=== PATIENT | male | born 1930 | race Caucasian/White ===

== ENCOUNTER 2017-06-28 09:43 | Inpatient (IN) ==
[2017-06-28 10:43] LABS: Basophils # 0.1 K/mcL (0.0-0.2); Basophils % 0.4 %; Eosinophils # 0.2 K/mcL (0.0-0.6); Eosinophils % 1.8 %; Hematocrit 33.7 % (37.5-50.1); Hemoglobin 10.1 g/dL (12.9-16.9); Immature Granulocytes % 2.4 % (0-4); Immature Platelets 1.8 % (1.1-6.1); Lymphocytes # 3.1 K/mcL (0.6-4.6); Lymphocytes % 27.4 %; Mean Corpuscular Hemoglobin 27.4 pg (28.0-33.3); Mean Corpuscular Volume 91.3 fL (83.0-100.0); Mean Platelet Volume 9.5 fL (9.4-12.4); Monocytes # 0.6 K/mcL (0.0-1.3); Neutrophils # 7.1 K/mcL (1.6-8.9); Platelet Count 313 K/mcL (140-400); Red Blood Count 3.69 M/mcL (4.19-5.50)
[2017-06-28 10:58] LABS: INR 1.2
[2017-06-28 11:00] LABS: Activated Partial Thrombo Time 32.5 Seconds (26.0-36.0)
[2017-06-28 11:38] LABS: Calcium 8.7 mg/dL (8.6-10.3); Potassium 3.9 mEq/L (3.5-5.1)
--- NOTE | 2017-06-28 13:44 | Emergency Department Note ---
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 Patient's been seen in the outpatient setting and had known gastro-bleed. Recommended coming to the hospital for admission and evaluation secondary to no bed availability. Patient denies any other symptoms or complaints. Onset (ago): day(s) Radiation: non-radiation Pain Scale: 0 Improves with: nothing Worsens with: nothing Associated symptoms: Reports: denies other symptoms - Related Data Allergies Allergy/AdvReac Type Severity Reaction Status Date / Time No Known Allergies Allergy Verified 06/28/17 09:47 All systems ED: reviewed and negative except as stated. Review of Systems: As Per HPI Constitutional: Denies: fever, chills Cardiovascular: Denies: chest pain, palpitations, dyspnea on exertion Respiratory: Denies: cough, dyspnea, wheezes Gastrointestinal: Reports: melena. Denies: nausea, vomiting, diarrhea Genitourinary: Denies: urgency, dysuria Musculoskeletal: Denies: back pain, neck pain Neurological: Denies: headache Hematological/Lymphatic: Denies: easy bleeding Past Medical History - Past Medical History Attestation: Yes The following information was validated with the patient. Source: patient Medical history: Reports: hypertension, other Psychiatric history: Reports: no psych history - Social History Smoking Status: Never smoker Smokeless Tobacco Status: No Alcohol use: Reports: none Drug use: Reports: none Physical Exam - General Limitations: no limitations General appearance: alert, in no apparent distress - Head Head exam: atraumatic, normocephalic, normal inspection - Neck Neck exam: Present: normal inspection, full ROM, trachea midline - Chest Chest inspection: Present: normal inspection, symmetric chest wall rise. Absent : tenderness - Respiratory Respiratory exam: Present: normal lung sounds bilaterally. Absent: respiratory distress, wheezes, stridor - Cardiovascular Cardiovascular exam: Present: regular rate, normal rhythm, normal heart sounds - Abdominal Exam Abdominal exam: Present: soft, Non-Tender, normal bowel sounds. Absent: tenderness, distention, guarding, rebound, rigidity, Trevino's sign, Rovsing's sign, tenderness at McBurney's Point - Extremities Exam Extremities exam: Present: normal inspection, full ROM. Absent: tenderness - Back Exam Back exam: Present: normal inspection, full ROM. Absent: tenderness - Neurological Exam Neurological exam: Present: alert, oriented X3, CN II-XII intact, normal gait - Psychiatric Psychiatric exam: Present: normal affect, normal mood - Skin Skin exam: Present: warm, dry, intact, normal color Course Course Narrative: Patient seen and examined the time of arrival. See history of present illness. 86-year-old male presents emergency room from outpatient gastroenterology office. Recommended to come the emergency room for admission secondary to melena. Patient denies any other symptoms. I evaluated him at the bedside he denies chest pain shortness of breath headache vision changes nausea vomiting or diarrhea. He has had melena stool. While. His hemoglobin is stable today at 10.1. No other comparable. Patient's been hemodynamically stable here. Otherwise laboratory workup was unremarkable. 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 chatterjee. Recommended admission for chronic anemia and the need for a EGD. No other complaints or issues noted by the patient. Patient will be admitted for some dramatic GI bleed with stable hemoglobin. Hospitalist Dr. quiroz was contacted. Reviewed the chart and understands the request for the lamp shade sewer and will admit the patient for further evaluation and management. My physical exam shows a well-appearing male in no apparent distress lungs are clear heart is regular. No signs of pitting edema she has good capillary refill and no signs of poor skin turgor or decreased pallor to the conjunctiva. Patient stable. No repeat Hemoccult testing will be completed as time secondary to the outpatient confirm lab. patient in the emergency room to admission process is completed. Cocaine was applied to this patient's treatment course. Vital Signs Temperature 98.7 F 06/28/17 09:44 Pulse Rate 92 06/28/17 09:44 Respiratory Rate 18 06/28/17 09:44 Blood Pressure 184/77 06/28/17 09:44 O2 Sat by Pulse Oximetry 98 06/28/17 09:44 Temperature 98.7 F 06/28/17 09:44 Pulse Rate 95 06/28/17 10:10 Respiratory Rate 16 06/28/17 10:10 Blood Pressure 160/65 06/28/17 10:10 O2 Sat by Pulse Oximetry 96 06/28/17 10:10 Oxygen Delivery Oxygen Delivery Room Air Medical Decision Making - MDM Narrative Medical decision making narrative: GI bleed, melena stool - Medical Records Medical records reviewed: Yes I reviewed the patient's medical records. - Lab Data Lab results reviewed: Yes I reviewed the patient's lab results. Result diagrams: 06/28/17 10:05 06/28/17 10:05 Lab Results 06/28/17 06/28/17 06/28/17 Range/Units 10:05 10:05 10:05 WBC 11.2 H (4.3-11.1) K/mcL RBC 3.69 L (4.19-5.50) M/mcL Hgb 10.1 L (12.9-16.9) g/dL Hct 33.7 L (37.5-50.1) % MCV 91.3 (83.0-100.0) fL MCH 27.4 L (28.0-33.3) pg MCHC 30.0 L (31.6-35.5) g/dL RDW 16.0 H (11.5-14.5) % Plt Count 313 (140-400) K/mcL MPV 9.5 (9.4-12.4) fL Immature Gran % 2.4 (0-4) % Seg Neutrophils % 63.0 % Lymphocytes % 27.4 % Monocytes % 5.0 % Eosinophils % 1.8 % Basophils % 0.4 % Neutrophils # 7.1 (1.6-8.9) K/mcL Lymphocytes # 3.1 (0.6-4.6) K/mcL Monocytes # 0.6 (0.0-1.3) K/mcL Eosinophils # 0.2 (0.0-0.6) K/mcL Basophils # 0.1 (0.0-0.2) K/mcL Immature Plt Fraction 1.8 (1.1-6.1) % PT 13.0 H (9.4-12.1) Seconds INR 1.2 APTT 32.5 (26.0-36.0) Seconds Sodium 138 (136-145) mEq/L Potassium 3.9 (3.5-5.1) mEq/L Chloride 106 (98-107) mEq/L Carbon Dioxide 22 L (23-29) mEq/L BUN 21 (8-23) mg/dL Creatinine 1.62 H (0.70-1.30) mg/dL Est GFR ( Amer) 49 L (> 60) Est GFR (Non-Af Amer) 41 L (> 60) BUN/Creatinine Ratio 13 (6-26) Glucose 124 H (70-105) mg/dL Calculated Osmolality 290 (280-300) Calcium 8.7 (8.6-10.3) mg/dL Blood Type Antibody Screen 06/28/17 Range/Units 10:05 WBC (4.3-11.1) K/mcL RBC (4.19-5.50) M/mcL Hgb (12.9-16.9) g/dL Hct (37.5-50.1) % MCV (83.0-100.0) fL MCH (28.0-33.3) pg MCHC (31.6-35.5) g/dL RDW (11.5-14.5) % Plt Count (140-400) K/mcL MPV (9.4-12.4) fL Immature Gran % (0-4) % Seg Neutrophils % % Lymphocytes % % Monocytes % % Eosinophils % % Basophils % % Neutrophils # (1.6-8.9) K/mcL Lymphocytes # (0.6-4.6) K/mcL Monocytes # (0.0-1.3) K/mcL Eosinophils # (0.0-0.6) K/mcL Basophils # (0.0-0.2) K/mcL Immature Plt Fraction (1.1-6.1) % PT (9.4-12.1) Seconds INR APTT (26.0-36.0) Seconds Sodium (136-145) mEq/L Potassium (3.5-5.1) mEq/L Chloride (98-107) mEq/L Carbon Dioxide (23-29) mEq/L BUN (8-23) mg/dL Creatinine (0.70-1.30) mg/dL Est GFR ( Amer) (> 60) Est GFR (Non-Af Amer) (> 60) BUN/Creatinine Ratio (6-26) Glucose (70-105) mg/dL Calculated Osmolality (280-300) Calcium (8.6-10.3) mg/dL Blood Type A POSITIVE Antibody Screen NEGATIVE
[2017-06-28] MEDS ORDERED: SODIUM CHLORIDE/NAHCO3/KCL/PEG 4,000 ML SOLN.RECON PO ONE (13:45)
[2017-06-28] MEDS ORDERED: Naloxone 0.4 MG/ML INJ IVP PRN (13:53)
--- NOTE | 2017-06-28 14:11 | Internal Med History&Physical ---
<Elijah Ospina - Last Filed: 06/28/17 14:06> Date of Encounter: 06/28/17 Time of Encounter: 14:06 Assessment and Plan (1) Melanotic stools Current visit: Yes Status: Acute H/O melanotic stools intermittently for the last 2 years Is reporting an increase in frequency as well as having increased frequency of bright red blood with BMs No prior history of colon cancer, no family history of colorectal cancer Reports he has never had a colonoscopy; saw gastroenterology in office today and due to continued bleeding as well as anemia, it is recommended he come to the hospital for further evaluation. I suspect that he may have both an upper and lower GI bleed No active bleeding as of my assessment. He remains hemodynamically stable -Consult to gastroenterology-Talked to Dr. Ventura who requested start GoLYTELY prep and Protonix drip; plan for EGD and colonoscopy in the morning -Type and screen completed -Nothing by mouth except sips with meds -Every 6 hours hemoglobin and hematocrit; Transfuse if bleeding develops or if anemia worsens and patient becomes symptomatic -CBC and BMP in the morning -continuous tele, and Spo2 monitoring (2) Upper GI bleed Current visit: Yes Status: Acute see plan above (3) CHF (congestive heart failure) Current visit: Yes Status: Suspected Bilateral lower extremity 2+ pitting edema. Denies any prior history of congestive heart failure, coronary artery disease or prior LA's. I suspect he may have undiagnosed CHF. -TTE now -20 mg IV Lasix 1 dose now Qualifiers: Congestive heart failure type: unspecified Congestive heart failure chronicity: unspecified Qualified Code(s): I50.9 - Heart failure, unspecified (4) HTN (hypertension) Current visit: Yes Status: Acute H/o HTN. BP is currently 160's systolic. He has had SBP as high as 180's. Continue to monitor and start Metoprolol 5mg IVP Q6hrs PRN. Start Metoprolol 12.5mg PO BID Qualifiers: Hypertension type: essential hypertension Qualified Code(s): I10 - Essential (primary) hypertension (5) DVT prophylaxis Current visit: Yes Status: Acute Mechanical EPCD's Internal Medicine - H&P: HPI Chief complaint: GI bleed Admitted From: Home Plans for Post Hospital Care: Home History of present illness: Mr. Robertson is a 86 year old male with past medical history of hypertension presents to [place] today with GI bleed ongoing for the last 2 years. No prior history of colon cancer, no family history of colon cancer, reports he has never had a colonoscopy. He reports that for the last 2 years he has been having small amounts of dark and bright red blood in his stool. He states that his primary care provider is aware of this and is performed multiple fecal occult blood samples to be negative. He does admit to some external hemorrhoids. However, the patient is concerned as he is been having an increase in the frequency of bloody stools with both bright red blood and melena. He denies any fever, chills, unintentional weight loss, night sweats, palpitations, tachycardia, shortness of breath, abdominal pain, or change in stools. 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 Past Med Surg Social Fam HX - Past Medical History Medical history: hypertension, other Psychiatric history: no psych history - Social History Smoking Status: Never smoker Smokeless Tobacco Status: No Alcohol use: none Drug use: none - Additional Family History Additional family history: Reports no family history and denies any family history of cancer or colon cancer Internal Medicine - H&P: Meds Aspirin Enteric Coated [Aspirin EC] 81 mg PO DAILY 06/28/17 [History] Atenolol [Tenormin] 25 mg PO DAILY 06/28/17 [History] Diltiazem CD (24hr) [Cardizem CD] 120 mg PO QAM 06/28/17 [History] Diltiazem CD (24hr) [Cardizem CD] 120 mg PO QPM 06/28/17 [History] Diltiazem CD (24hr) [Cardizem CD] 300 mg PO QAM 06/28/17 [History] Finasteride [Proscar] 5 mg PO DAILY 06/28/17 [History] Hydrophilic Ointment [Aquabase] 1 appl TP BID 06/28/17 [History] Lisinopril/Hydrochlorothiazide [Zestoretic 20-12.5 mg Tablet] 1 each PO BID [History] Sodium Chloride 5% OPTH Oint [Becca-128] 1 appl BOTH EYES HS 06/28/17 [History] Tamsulosin [Flomax] 0.4 mg PO DAILY 06/28/17 [History] Vit C/E/Zn/Coppr/Lutein/Zeaxan [Preservision Areds 2 Softgel] 1 cap PO BID 06/28 [History] 3 Allergy/AdvReac Type Severity Reaction Status Date / Time No Known Allergies Allergy Verified 06/28/17 09:47 All Systems PM: A 10-system review of systems was performed and is negative for pertinent findings except as documented above in the HPI. - Constitutional Constitutional: as per HPI - Cardiovascular Cardiovascular ROS IM: no chest pain, no diaphoresis, no dyspnea, no lightheadedness, no palpitations, no syncope - Respiratory Respiratory: no cough, no dyspnea, no wheezing, no excessive phlegm production - Gastrointestinal Gastrointestinal: as per HPI - Genitourinary Genitourinary ROS male: no difficulty urinating, no dysuria, no flank pain - Musculoskeletal Musculoskeletal ROS IM: no numbness, no tingling - Integumentary Integumentary IM: no rash, no unusual bruising - Neurological Neurological ROS: no confusion, no convulsions, no focal weakness, no numbness, no tingling, no tremor(s) - Hematologic/Lymphatic Hematologic/Lymphatic: as per HPI - Constitutional Vitals: Temp Pulse Resp BP Pulse Ox 98.7 F 95 16 160/65 96 06/28/17 09:44 06/28/17 10:10 06/28/17 10:10 06/28/17 10:10 06/28/17 10:10 General appearance: Present: cooperative, A&O X 3, no acute distress, answers questions appropriately - Head Head exam: Present: atraumatic, normocephalic - Eye Eye exam: Present: PERRL, conjuntiva pink, sclera anicteric Pupils: Present: PERRL - Neck Neck exam general surgery: Present: supple, trachea midline. Absent: lymphadenopathy - Respiratory Respiratory exam: Present: CTAB. Absent: accessory muscle use, rales, rhonchi, wheezes - Cardiovascular Cardiovascular exam: Present: RRR, +S1, +S2. Absent: diastolic murmur, gallop, rubs, systolic murmur - GI/Abdominal GI/Abdominal exam: Present: normal bowel sounds, soft, no peritoneal signs. Absent: distended, tenderness - Extremities Exam Extremities exam: Present: pedal edema (Bilateral lower extremity 2+ pitting edema), warm, radial pulses palpable and symmetrical. Absent: calf tenderness, cyanotic - Neurological Exam Neurological exam: Present: CN II-XII intact, oriented X3, no focal deficits. Absent: pronater drift, facial droop, speech deficit - Skin Skin exam: Present: dry, intact Internal Med - H&P Results - Labs CBC & Chem 7: 06/28/17 10:05 06/28/17 10:05 Labs: Short CBC 06/28/17 Range/Units 10:05 WBC 11.2 H (4.3-11.1) K/mcL Hgb 10.1 L (12.9-16.9) g/dL Hct 33.7 L (37.5-50.1) % Plt Count 313 (140-400) K/mcL Neutrophils # 7.1 (1.6-8.9) K/mcL BMP 06/28/17 10:05 Sodium 138 Potassium 3.9 Chloride 106 Carbon Dioxide 22 L BUN 21 Creatinine 1.62 H Glucose 124 H Calcium 8.7 <João Heredia T - Last Filed: 06/28/17 16:46> Date of Encounter: 06/28/17 Internal Medicine - H&P: HPI History of present illness: Mr. Robertson is a 86 year old male All Systems PM: A 10-system review of systems was performed and is negative for pertinent findings except as documented above in the HPI. - Constitutional Vitals: Temp Pulse Resp BP Pulse Ox 98.1 F 78 18 149/85 96 06/28/17 15:25 06/28/17 15:25 06/28/17 15:25 06/28/17 15:25 06/28/17 15:25 Internal Med - H&P Results - Labs CBC & Chem 7: 06/28/17 16:07 06/28/17 10:05 - Attending Attestation Seen and examined independently, spouse at the bedside Recently treated for cellulitis , on ASA daily only, also antihypertensives Has a scalp lesion on his Right parieto-occipital area, LLE red> left, both with piting pedal edema, 1+, chest is CTAB, HS S1, S2. No focal neuro deficits Labs and Imaging reviewed Agree with monitoring H/H, bowel prep for EGD/Colonosocpy, GI eval, PPI, Wound care eval for his scalp wound, no evidence of sepsis. ECHO for suspected CHF. IV metoprolol prn for elevated blood pressure. Rest as in DAKOTAH Ospina' documentation
[2017-06-28] MEDS ORDERED: *HR* Metoprolol 5 MG/5 ML VIAL IVP SCH (14:30)
[2017-06-28] MEDS ORDERED: Furosemide 20 MG/2 ML VIAL IVP ONE (14:35)
[2017-06-28] MEDS ORDERED: *HR* Metoprolol 5 MG/5 ML VIAL IVP PRN (14:37)
[2017-06-28 16:14] LABS: Hematocrit 29.4 % (37.5-50.1)
[2017-06-28] MEDS: Pantoprazole 40 MG in 0.9 % Sodium Chloride Mini Bag 100 ML IVC SCH ×2 (17:47→22:26)
[2017-06-28 22:02] LABS: Hematocrit 30.6 % (37.5-50.1); Hemoglobin 9.6 g/dL (12.9-16.9)
[2017-06-29] MEDS: Pantoprazole 40 MG in 0.9 % Sodium Chloride Mini Bag 100 ML IVC SCH ×2 (03:42→08:40)
[2017-06-29 04:59] LABS: Basophils % 0.4 %; Eosinophils # 0.2 K/mcL (0.0-0.6); Eosinophils % 1.8 %; Hematocrit 29.7 % (37.5-50.1); Immature Granulocytes % 2.3 % (0-4); Lymphocytes # 2.2 K/mcL (0.6-4.6); Lymphocytes % 24.4 %; Mean Corpuscular HGB Conc 30.3 g/dL (31.6-35.5); Mean Corpuscular Hemoglobin 27.3 pg (28.0-33.3); Monocytes # 0.6 K/mcL (0.0-1.3); Monocytes % 6.1 %; Neutrophils # 5.9 K/mcL (1.6-8.9); Nucleated Red Blood Cells 0.3 /100 WBC (0); Platelet Count 259 K/mcL (140-400); Red Cell Distribution Width 15.8 % (11.5-14.5)
[2017-06-29 05:11] LABS: Calcium 8.2 mg/dL (8.6-10.3); Potassium 4.3 mEq/L (3.5-5.1)
--- NOTE | 2017-06-29 08:22 | Electrocardiograph Report ---
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
[2017-06-29] MEDS: Lisinopril-HCTZ 20-12.5mg TABLET PO SCH ×2 (08:39→21:30)
[2017-06-29] MEDS: Diltiazem CD (24hr) 120 MG CAPSULE PO SCH (08:39)
[2017-06-29] MEDS: Diltiazem CD (24hr) 300 MG CAPSULE PO SCH (08:39)
[2017-06-29] MEDS: Finasteride 5 MG TABLET PO SCH (08:39)
[2017-06-29 10:00] LABS: Hematocrit 30.9 % (37.5-50.1); Hemoglobin 9.2 g/dL (12.9-16.9)
--- NOTE | 2017-06-29 11:08 | Gastroenterology Consult Note ---
<Tim Jones - Last Filed: 06/29/17 11:06> Date of Encounter: 06/29/17 Time of Encounter: 10:25 - Assessment and plan (1) GI bleed Current Visit: Yes Status: Acute Assessment and plan: Pt with BRBPR and melena. Hgb dropped to 9 this AM. Plan for EGD and colonoscopy today, keep patient NPO. Qualifiers: GI bleed type/associated pathology: unspecified gastrointestinal hemorrhage type Qualified Code(s): K92.2 - Gastrointestinal hemorrhage, unspecified (2) Anemia Current Visit: Yes Status: Acute Assessment and plan: Hgb 10.1 on admission and 9 this AM. Continue to monitor CBC and transfuse PRBC as indicated. Plan for EGD and colonoscopy today. Qualifiers: Anemia type: unspecified type Qualified Code(s): D64.9 - Anemia, unspecified - Time Spent With Patient Total time spent is greater than 50% in coordination of care (as documented) at patient's floor/unit and/or counseling patient: GI History of Present Illness - Data of Consult Patient: new to practice Consult date: 06/29/17 Requesting Physician: Ankur Sanchez - Consult Narrative Reason for consult: GI Bleed History of present illness: Mr. Robertson is a 86 year old male with PMHx of HTN who presented with GI bleed that has been ongoing for the past 2 years. He reports that for the last 2 years he has been having small amounts of dark and bright red blood in his stool. He states that his primary care provider is aware of this and is performed multiple fecal occult blood samples to be negative. He does admit to some external hemorrhoids. However, the patient is concerned as he is been having an increase in the frequency of bloody stools with both bright red blood and melena. He has never had colonoscopy. He denies family history of colon cancer. He denies fever, chills, weight loss, shortness of breath, abdominal pain, diarrhea, or constipation. He presented to the GI office yesterday and was sent to the ED for further evaluation of his GI bleed and anemia. Procedures: None NSAIDs: ASA Anticoagulation: None Past Med Surg Social Fam HX - Past Medical History Medical history: hypertension, other Psychiatric history: no psych history - Social History Smoking Status: Never smoker Smokeless Tobacco Status: No Alcohol use: none Drug use: none - Family History Father History Unknown: Yes Living Status: - Gastrointestinal Gastrointestinal: Present: as per HPI - Constitutional Constitutional: as per HPI - EENT Eyes: as per HPI Ears: Present: as per HPI Nose, mouth and throat: Present: as per HPI - Cardiovascular Cardiovascular ROS: Present: as per HPI - Respiratory Respiratory IM: Present: as per HPI - Genitourinary Genitourinary: Absent: change in color, Urinary frequency - Neurological ROS Neurological GI: Present: as per HPI - Hematologic/Lymphatic Hematologic/Lymphatic pediatric: Present: as per HPI - Musculoskeletal Musculoskeletal ROS GI: Present: as per HPI - Integumentary Integumentary GI: Present: as per HPI - Psychiatric ROS Psychiatric GI: Present: as per HPI - Endocrine Endocrine IM: Present: as per HPI - Constitutional Vitals: Temp Pulse Resp BP Pulse Ox 98.0 F 93 18 163/81 96 06/29/17 08:10 06/29/17 08:10 06/29/17 08:10 06/29/17 08:10 06/29/17 08:43 General appearance: Present: cooperative, A&O X 3, no acute distress, answers questions appropriately - Head Head exam: Present: atraumatic, normocephalic - Eye Eye exam: Present: normal appearance, sclera anicteric - ENT ENT exam: Present: mucous membranes dry - Neck Neck exam general surgery: Present: normal inspection, trachea midline - Respiratory Respiratory exam: Present: CTAB. Absent: rales, rhonchi - Cardiovascular Cardiovascular exam: Present: RRR, +S1, +S2 - GI/Abdominal GI/Abdominal exam: Present: soft, no peritoneal signs. Absent: distended, firm , guarding, tenderness - Rectal Rectal exam: Present: deferred - Extremities Exam Extremities exam: Present: warm - Neurological Exam Neurological exam: Present: no focal deficits - Psychiatric Psychiatric exam: Present: normal affect, normal mood - Skin Skin exam: Present: dry, intact, normal color, warm Results - Labs CBC & Chem 7: 06/29/17 09:34 06/29/17 04:29 Labs: Last Result Calcium 8.2 mg/dL (8.6-10.3) L 06/29/17 04:29 Entire Visit Hgb 9.2 g/dL (12.9-16.9) L 06/29/17 09:34 Hct 30.9 % (37.5-50.1) L 06/29/17 09:34 PT 13.0 Seconds (9.4-12.1) H 06/28/17 10:05 - ABG ABG results: PT/INR, D-dimer PT 13.0 Seconds (9.4-12.1) H 06/28/17 10:05 Consult Discharge Plan - Plan Referrals: [facility] [Outside] <Jessie Soto - Last Filed: 06/29/17 20:57> Date of Encounter: 06/29/17 Time of Encounter: 13:30 - Time Spent With Patient Total time spent is greater than 50% in coordination of care (as documented) at patient's floor/unit and/or counseling patient: GI History of Present Illness - Data of Consult Requesting Physician: Ankur Sanchez - Consult Narrative History of present illness: Mr. Robertson is a 86 year old male - Constitutional Vitals: Temp Pulse Resp BP Pulse Ox 98.2 F 74 16 160/65 96 06/29/17 15:40 06/29/17 15:40 06/29/17 15:40 06/29/17 15:40 06/29/17 15:40 Results - Labs CBC & Chem 7: 06/29/17 15:57 06/29/17 04:29 Labs: Last Result Calcium 8.2 mg/dL (8.6-10.3) L 06/29/17 04:29 Entire Visit Hgb 10.4 g/dL (12.9-16.9) L 06/29/17 15:57 Hct 33.5 % (37.5-50.1) L 06/29/17 15:57 PT 13.0 Seconds (9.4-12.1) H 06/28/17 10:05 - ABG ABG results: PT/INR, D-dimer PT 13.0 Seconds (9.4-12.1) H 06/28/17 10:05 - Attending Attestation I examined this patient and my medical decision-making was reviewed with the FINANCIAL COORDINATOR. I agree with the documented findings, disposition and treatment plan as described except to the extent set forth below. Pt seen. Pt with bloody BMs and also with melena for a while. Has Inc stool freq Rec: EGD_ colon to r/o upper and lower GI caues
[2017-06-29] MEDS ORDERED: *HR* FentaNYL (PF) 100 MCG/2 ML VIAL ONE (12:10)
[2017-06-29] MEDS ORDERED: *HR* Midazolam HCl 5 MG/5 ML VIAL IVP ONE (12:10)
[2017-06-29] MEDS ORDERED: *HR* Midazolam HCl 2 MG/2 ML VIAL IVP ONE (12:23)
[2017-06-29] MEDS ORDERED: *HR* FentaNYL (PF) 100 MCG/2 ML VIAL IVP ONE (12:23)
[2017-06-29] MEDS ORDERED: Simethicone 40 MG/0.6 ML MLS IR ONE (12:23)
[2017-06-29] MEDS ORDERED: Tetracaine/Benzocaine/Butamben 200MG/SPRAY (100SPY/BOT) MM ONE (12:23)
--- NOTE | 2017-06-29 14:28 | Internal Med Progress Note ---
Date of Encounter: 06/29/17 Time of Encounter: 12:00 - Assessment and plan (1) Anemia Current Visit: Yes Status: Acute Assessment and plan: Anemia secondary to GI bleed, acute blood loss anemia. Suspect an upper GI bleed but he will have a EGD and colonoscopy as etiology is not completely clear. GI input is appreciated. Hemoglobin has remained fairly stable since admission. Continue to monitor, transfuse when necessary. Continue protonix. Qualifiers: Anemia type: unspecified type Qualified Code(s): D64.9 - Anemia, unspecified (2) DVT prophylaxis Current Visit: Yes Status: Acute Assessment and plan: SCD's (3) GI bleed Current Visit: Yes Status: Acute Assessment and plan: As discussed above Qualifiers: GI bleed type/associated pathology: unspecified gastrointestinal hemorrhage type Qualified Code(s): K92.2 - Gastrointestinal hemorrhage, unspecified (4) HTN (hypertension) Current Visit: Yes Status: Acute Assessment and plan: Stable, monitor Qualifiers: Hypertension type: essential hypertension Qualified Code(s): I10 - Essential (primary) hypertension (5) Upper GI bleed Current Visit: Yes Status: Acute (6) CHF (congestive heart failure) Current Visit: Yes Status: Suspected Qualifiers: Congestive heart failure type: unspecified Congestive heart failure chronicity: unspecified Qualified Code(s): I50.9 - Heart failure, unspecified - Time Spent With Patient 25 - 35 minutes - Subjective Interval history: History of present illness: Mr. Robertson is a 86 year old male with past medical history of hypertension presents to [facility] today with GI bleed ongoing for the last 2 years. No prior history of colon cancer, no family history of colon cancer, reports he has never had a colonoscopy. He reports that for the last 2 years he has been having small amounts of dark and bright red blood in his stool. He states that his primary care provider is aware of this and is performed multiple fecal occult blood samples to be negative. He does admit to some external hemorrhoids. However, the patient is concerned as he is been having an increase in the frequency of bloody stools with both bright red blood and melena. He denies any fever, chills, unintentional weight loss, night sweats, palpitations, tachycardia, shortness of breath, abdominal pain, or change in stools. He reports that he was his loss prevention lead office today for further evaluation of this GI bleed and it was recommended at that time that he come to the hospital for admission and further workup. 06/29: Patient denies any complaints whatsoever. Denies any blood in his stool presently. No chest pain or shortness of breath. No nausea, vomiting, diarrhea. No fevers or chills. He is awaiting EGD and colonoscopy. Hb remains fairly stable at 9.2. - Constitutional Vitals: Temp Pulse Resp BP Pulse Ox 98.2 F 67 18 121/55 99 06/29/17 12:22 06/29/17 13:22 06/29/17 13:22 06/29/17 13:22 06/29/17 13:22 General appearance: Present: cooperative, A&O X 3, no acute distress, answers questions appropriately Internal Medicine: Result - Labs CBC & Chem 7: 06/29/17 09:34 06/29/17 04:29 Labs: Short CBC 06/28/17 06/29/17 06/29/17 Range/Units 21:52 04:29 09:34 WBC 9.1 (4.3-11.1) K/mcL Hgb 9.6 L 9.0 L 9.2 L (12.9-16.9) g/dL Hct 30.6 L 29.7 L 30.9 L (37.5-50.1) % Plt Count 259 (140-400) K/mcL Neutrophils # 5.9 (1.6-8.9) K/mcL BMP 06/29/17 04:29 Sodium 139 Potassium 4.3 Chloride 109 H Carbon Dioxide 24 BUN 19 Creatinine 1.64 H Glucose 95 Calcium 8.2 L - ABG Interpretation ABG results: PT/INR, D-dimer PT 13.0 Seconds (9.4-12.1) H 06/28/17 10:05 Consult Discharge Plan - Plan Referrals: [facility] [Outside]
[2017-06-29 16:36] LABS: Hematocrit 33.5 % (37.5-50.1); Hemoglobin 10.4 g/dL (12.9-16.9)
[2017-06-29] MEDS ORDERED: Diltiazem CD (24hr) 120 MG CAPSULE PO SCH (18:00)
[2017-06-29 22:11] LABS: Hematocrit 29.3 % (37.5-50.1)
[2017-06-29 22:12] LABS: Hemoglobin 8.8 g/dL (12.9-16.9)
[2017-06-30] MEDS: Pantoprazole 40 MG in 0.9 % Sodium Chloride Mini Bag 100 ML IVC SCH ×3 (06:26→06:28)
[2017-06-30 07:37] VITALS: BP 161/72
[2017-06-30] MEDS: Finasteride 5 MG TABLET PO SCH (08:09)
[2017-06-30] MEDS: Lisinopril-HCTZ 20-12.5mg TABLET PO SCH (08:09)
[2017-06-30] MEDS: Diltiazem CD (24hr) 300 MG CAPSULE PO SCH (08:09)
[2017-06-30] MEDS: Diltiazem CD (24hr) 120 MG CAPSULE PO SCH (08:09)
[2017-06-30 08:24] LABS: Hematocrit 29.7 % (37.5-50.1); Hemoglobin 8.9 g/dL (12.9-16.9); Mean Corpuscular Hemoglobin 27.3 pg (28.0-33.3); Mean Corpuscular Volume 91.1 fL (83.0-100.0); Mean Platelet Volume 9.1 fL (9.4-12.4); Platelet Count 232 K/mcL (140-400); Red Blood Count 3.26 M/mcL (4.19-5.50); Red Cell Distribution Width 15.9 % (11.5-14.5)
[2017-06-30 08:43] LABS: Calcium 8.1 mg/dL (8.6-10.3)
--- NOTE | 2017-06-30 08:51 | Discharge Summary ---
Date of Encounter: 06/30/17 Time of Encounter: 09:00 - Discharge Diagnosis (1) Anemia Priority: Primary Status: Acute Comments: EGD was negative. Colonoscopy showed some inflammation which was biopsied, concern for some type of inflammatory bowel disease? Ulcerative colitis. He also had multiple polyps which were removed and biopsied. Agents hemoglobin remained stable. No further reports of bleeding. Will need repeat colonoscopy in 6 months per GI. Qualifiers: Anemia type: unspecified type Qualified Code(s): D64.9 - Anemia, unspecified (2) DVT prophylaxis Priority: Secondary Status: Acute (3) GI bleed Priority: Primary Status: Acute Comments: See above Qualifiers: GI bleed type/associated pathology: unspecified gastrointestinal hemorrhage type Qualified Code(s): K92.2 - Gastrointestinal hemorrhage, unspecified (4) HTN (hypertension) Priority: Secondary Status: Acute Qualifiers: Hypertension type: essential hypertension Qualified Code(s): I10 - Essential (primary) hypertension - Discharge Medications Prescriptions: Ferrous Sulfate 325 mg PO BID #60 tablet Home Medications: Atenolol [Tenormin] 25 mg PO DAILY 06/28/17 [History] Diltiazem CD (24hr) [Cardizem CD] 120 mg PO QAM 06/28/17 [History] Diltiazem CD (24hr) [Cardizem CD] 120 mg PO QPM 06/28/17 [History] Diltiazem CD (24hr) [Cardizem CD] 300 mg PO QAM 06/28/17 [History] Finasteride [Proscar] 5 mg PO DAILY 06/28/17 [History] Hydrophilic Ointment [Aquabase] 1 appl TP BID 06/28/17 [History] Lisinopril/Hydrochlorothiazide [Zestoretic 20-12.5 mg Tablet] 1 each PO BID [History] Sodium Chloride 5% OPTH Oint [Becca-128] 1 appl BOTH EYES HS 06/28/17 [History] Tamsulosin [Flomax] 0.4 mg PO DAILY 06/28/17 [History] Vit C/E/Zn/Coppr/Lutein/Zeaxan [Preservision Areds 2 Softgel] 1 cap PO BID 06/28 [History] Ferrous Sulfate 325 mg PO BID #60 tablet 06/30/17 [Rx] Allergies/Adverse Reactions: 3 Allergy/AdvReac Type Severity Reaction Status Date / Time No Known Allergies Allergy Verified 06/28/17 09:47 Date of admission: 06/28/17 16:32 Primary care physician: PCP [place] Discharging clinician: Curry Crews Anticipated date of discharge: 06/30/17 - Patient Status Disposition: Home, Self-Care Condition: Good Overall status at discharge: patient is back to baseline - Discharge Instructions Follow Up With: [facility] [Outside] (Follow up with your doctor in one week CBC in 3 days Follow up with GI as planned, need repeat colonoscopy in 6 months ) Additional Instructions: May resume aspirin once OK by your doctor on follow up next week - Diet and Activity Diet: advance to your usual diet Interval History: History of present illness: Mr. Robertson is a 86 year old male with past medical history of hypertension presents to [facility] today with GI bleed ongoing for the last 2 years. No prior history of colon cancer, no family history of colon cancer, reports he has never had a colonoscopy. He reports that for the last 2 years he has been having small amounts of dark and bright red blood in his stool. He states that his primary care provider is aware of this and is performed multiple fecal occult blood samples to be negative. He does admit to some external hemorrhoids. However, the patient is concerned as he is been having an increase in the frequency of bloody stools with both bright red blood and melena. He denies any fever, chills, unintentional weight loss, night sweats, palpitations, tachycardia, shortness of breath, abdominal pain, or change in stools. He reports that he was his body design checker office today for further evaluation of this GI bleed and it was recommended at that time that he come to the hospital for admission and further workup. 06/29: Patient denies any complaints whatsoever. Denies any blood in his stool presently. No chest pain or shortness of breath. No nausea, vomiting, diarrhea. No fevers or chills. He is awaiting EGD and colonoscopy. Hb remains fairly stable at 9.2. 06/30: Patient's hemoglobin remained stable. He underwent EGD which was negative. Colonoscopy showed an area of inflammation which was biopsied, concerning for inflammatory bowel disease, possibly ulcerative colitis. He also had multiple polyps which were removed. His hemoglobin otherwise remained stable and he was deemed stable for discharge. He will need of repeat colonoscopy in 6 months. We did start him on iron therapy as well. Repeat hemoglobin next week. Patient to call should he have any further bleeding. Hospital course: Mr. Robertson is a 86 year old male - Time Spent with Patient Total time spent providing and/or coordinating discharge services: Less than 30 minutes - Constitutional Vitals: Temp Pulse Resp BP Pulse Ox 98.5 F 73 18 161/72 97 06/30/17 07:34 06/30/17 07:34 06/30/17 07:34 06/30/17 07:34 06/30/17 07:34 General appearance: Present: cooperative, A&O X 3, no acute distress, answers questions appropriately
[2017-06-30] MEDS ORDERED: PRESERVISION AREDS PO SCH (09:00)
[2017-06-30] MEDS ORDERED: Pantoprazole 40 MG VIAL IVP SCH (18:00)
[2017-06-30] MEDS ORDERED: Sodium Chloride 5% OPTH 3.5 GM TUBE BOTH EYES SCH (21:00)
== END 2017-06-30 09:56 | disposition home or self-care (01) | DRG 386 ==
LOC: EMEROO 09:43 → 3ANU 09:43
PROVIDERS: ADMIT Internal Medicine; ATTEND Hospitalist

== ENCOUNTER 2017-09-20 13:16 | Inpatient (IN) ==
--- NOTE | 2017-09-20 13:49 | Emergency Department Note ---
Disposition Clinical Impression: Bilateral lower extremity edema, Elevated troponin, New onset left bundle branch block (LBBB) Disposition: Admitted As Inpatient Condition: Good [facility]Primary Care Provider[facility] - Forms: ED Satisfaction Letter Time of Disposition: 13:56 General Adult HPI - General Chief complaint: ED Extremity Problem,Nontraumatic Stated complaint: leg swelling Time Seen by Provider: 09/20/17 13:23 Source: patient Limitations: no limitations Nursing Notes Reviewed: Yes Vital Signs Reviewed: Yes - History of Present Illness HPI Narrative: Mr. Everett is a very pleasant 86-year-old gentleman with a past mental history of carotid artery stenosis, hyperlipidemia, hypertension, iron deficiency anemia who presents to the [facility] emergency department for chief complaint of bilateral lower extremity swelling. Patient is followed by the [facility] for his chronic medical conditions and was seen there today prior to arrival at the urgent care. At that time he was worked up for this similar complaint. Of note, CBC was unremarkable with a WBC of 8.1, hemoglobin 14.7 and hematocrit 46.9 along with BMP showing creatinine of 1.53, BUN 21 and potassium of 3.2. Troponin was 0.06, CPK 61 and BNP of 8339. ABG was performed and showed pH 7.48, PCO2 39, PO2 65 and HCO3 29. EKG was performed and showed heart rate of 84 with normal sinus rhythm along with a new left bundle branch block. Chest x-ray demonstrates cardiomegaly without any evidence of consolidation, infiltrates or pulmonary edema. Patient had a 22 -gauge peripheral line placed in his right upper extremity was given 20 mg of Lasix IV. Due to his new left bundle branch block with a positive troponin and lower extremities edema he was sent to our emergency department for further evaluation. On arrival, his only complaints are bilateral lower extremity edema started roughly 3 days ago. He is not taking any diuretics at 4 is commendation medication of lisinopril with Hydrocort thiazide. He denies any excessive salt intake. He occasionally elevates his legs. He denies any other associated symptoms such as chest pain, palpitations, short of breath, nausea, vomiting, diaphoresis. He does not have any orthopnea or PND at this time. He has no tobacco abuse or alcohol abuse. Patient was admitted to our hospital in June 2017 for a lower GI bleed. No other complaints at this time. Pain Scale: 0 - Related Data Home Medications Medication Instructions Recorded Confirmed Atenolol [Tenormin] 25 mg PO DAILY 06/28/17 06/28/17 Diltiazem CD (24hr) [Cardizem CD] 120 mg PO QAM 06/28/17 06/28/17 Diltiazem CD (24hr) [Cardizem CD] 120 mg PO QPM 06/28/17 06/28/17 Diltiazem CD (24hr) [Cardizem CD] 300 mg PO QAM 06/28/17 06/28/17 Finasteride [Proscar] 5 mg PO DAILY 06/28/17 06/28/17 Hydrophilic Ointment [Aquabase] 1 appl TP BID 06/28/17 06/28/17 Lisinopril/Hydrochlorothiazide 1 each PO BID 06/28/17 06/28/17 [Zestoretic 20-12.5 mg Tablet] Sodium Chloride 5% OPTH Oint 1 appl BOTH EYES HS 06/28/17 06/28/17 [Becca-128] Tamsulosin [Flomax] 0.4 mg PO DAILY 06/28/17 06/28/17 Vit C/E/Zn/Coppr/Lutein/Zeaxan 1 cap PO BID 06/28/17 06/28/17 [Preservision Areds 2 Softgel] Previous Rx's Medication Instructions Recorded Ferrous Sulfate 325 mg PO BID #60 tablet 06/30/17 Allergies Allergy/AdvReac Type Severity Reaction Status Date / Time No Known Allergies Allergy Verified 06/28/17 09:47 Review of Systems: Constitutional: No fever Vision: No blurred vision ENT: No rhinorrhea Respiratory: No cough Allergic: No allergies : No blood in urine GI: No blood in stool Hematologic: No bruising Dermatologic: No skin rash Musculoskeletal: No pain in the extremities Neuro: No numbness of the extremities Past Medical History - Past Medical History Medical history: Reports: hypertension, other Psychiatric history: Reports: no psych history - Social History Smoking Status: Never smoker Smokeless Tobacco Status: No Alcohol use: Reports: none Drug use: Reports: none Physical Exam CONSTITUTIONAL: Alert and oriented X3 in no apparent distress HEAD: Normocephalic; atraumatic. RESP: NRD without use of accessory musculature, CTA b/l with no wheezes/rales/ rhonchi CARD: Regular rhythm, without murmurs, rubs, or gallop ABD: grossly normal, soft, non-tender, no guarding/distention/rigidity SKIN: normal appearance, no pallor/diaphoresis,mottling,jaundice,cyanosis EXT: 3+ pitting edema bilateral lower extremities PSYCH: appropriate mood/affect - General Limitations: no limitations General appearance: alert, in no apparent distress Course Course Narrative: Patient was seen and examined at bedside. Vital signs were reviewed and normal. was present at bedside during evaluation. Physical examination demonstrates 3+ pitting edema of his bilateral lower extremities and is otherwise benign. Given the [facility] performed his entire workup prior to arrival to include CBC, BMP, troponin, CPK, after a blood gas, BNP and chest x-ray that demonstrated BNP of 8339, troponin 0.06 and an EKG demonstrating a new left bundle branch block. Therefore I would recommend admission via the hospitalist service for observation for further cardiac workup and investigation into his possible congestive heart failure with further diuresis and echocardiogram. EMR was reviewed initially he was admitted to the [facility] back in June and had suspected CHF but no echocardiogram was performed. Disposition was discussed with patient and family who understand and agree to this plan. Hospitalist will be paged. 1407: 20 mg of Lasix IV will be administered. Spoke with the admitting hospitalist, Dr. Ramírez, looks at patient for admission. No further recommendations from hospitalist team at this time. Patient appears comfortable and nontoxic. Disposition was discussed with patient and who understand and agree to this plan. All questions and concerns were addressed. Vital Signs Temperature 97.8 F 09/20/17 13:18 Pulse Rate 78 09/20/17 13:18 Respiratory Rate 18 09/20/17 13:18 Blood Pressure 153/59 09/20/17 13:18 O2 Sat by Pulse Oximetry 95 09/20/17 13:18 Temperature 97.8 F 09/20/17 13:18 Pulse Rate 78 09/20/17 13:18 Respiratory Rate 18 09/20/17 13:18 Blood Pressure 153/59 09/20/17 13:18 O2 Sat by Pulse Oximetry 95 09/20/17 13:18 Oxygen Delivery Oxygen Delivery Room Air Medical Decision Making - Medical Records Medical records reviewed: Yes I reviewed the patient's medical records. - Lab Data Lab results reviewed: Yes I reviewed the patient's lab results. - Radiology Data Radiology results reviewed: Yes I reviewed the patient's radiology results.
--- NOTE | 2017-09-20 14:02 | Emergency Department Note ---
Disposition Clinical Impression: Bilateral lower extremity edema, Elevated troponin, New onset left bundle branch block (LBBB) Disposition: Admitted As Inpatient Condition: Good Forms: ED Satisfaction Letter Extremity Problem HPI - General Chief complaint: ED Extremity Problem,Nontraumatic Stated complaint: leg swelling Time Seen by Provider: 09/20/17 13:23 Source: patient Limitations: no limitations Nursing Notes Reviewed: Yes Vital Signs Reviewed: Yes - History of Present Illness Pain Scale: 0 - Related Data Home Medications Medication Instructions Recorded Confirmed Atenolol [Tenormin] 25 mg PO DAILY 06/28/17 06/28/17 Diltiazem CD (24hr) [Cardizem CD] 120 mg PO QAM 06/28/17 06/28/17 Diltiazem CD (24hr) [Cardizem CD] 120 mg PO QPM 06/28/17 06/28/17 Diltiazem CD (24hr) [Cardizem CD] 300 mg PO QAM 06/28/17 06/28/17 Finasteride [Proscar] 5 mg PO DAILY 06/28/17 06/28/17 Hydrophilic Ointment [Aquabase] 1 appl TP BID 06/28/17 06/28/17 Lisinopril/Hydrochlorothiazide 1 each PO BID 06/28/17 06/28/17 [Zestoretic 20-12.5 mg Tablet] Sodium Chloride 5% OPTH Oint 1 appl BOTH EYES HS 06/28/17 06/28/17 [Becca-128] Tamsulosin [Flomax] 0.4 mg PO DAILY 06/28/17 06/28/17 Vit C/E/Zn/Coppr/Lutein/Zeaxan 1 cap PO BID 06/28/17 06/28/17 [Preservision Areds 2 Softgel] Previous Rx's Medication Instructions Recorded Ferrous Sulfate 325 mg PO BID #60 tablet 06/30/17 Allergies Allergy/AdvReac Type Severity Reaction Status Date / Time No Known Allergies Allergy Verified 06/28/17 09:47 Past Medical History - Past Medical History Medical history: Reports: hypertension, other Psychiatric history: Reports: no psych history - Social History Smoking Status: Never smoker Smokeless Tobacco Status: No Alcohol use: Reports: none Drug use: Reports: none Physical Exam - General Limitations: no limitations General appearance: alert, in no apparent distress Course Vital Signs Temperature 97.8 F 09/20/17 13:18 Pulse Rate 78 09/20/17 13:18 Respiratory Rate 18 09/20/17 13:18 Blood Pressure 153/59 09/20/17 13:18 O2 Sat by Pulse Oximetry 95 09/20/17 13:18 Temperature 97.8 F 09/20/17 13:18 Pulse Rate 78 09/20/17 13:18 Respiratory Rate 18 09/20/17 13:18 Blood Pressure 153/59 09/20/17 13:18 O2 Sat by Pulse Oximetry 95 09/20/17 13:18 Oxygen Delivery Oxygen Delivery Room Air Attestation Statement - Attestation Attestation: I, Juan Jerez, examined this patient and my medical decision-making was reviewed with the MANAGER DISASTER [employer]OV[employer]/PA/Advanced Practice Nurse/Resident Physician. I agree with the documented findings, disposition and treatment plan as described except to the extent set forth below. 86-year-old male presents to the emergency department from the [facility] for further evaluation of his bilateral lower extremity swelling and elevated troponin. Patient states he has not taken his hydrochlorothiazide/lisinopril for many months, he has swelling of the bilateral lower extremity with +2 pitting edema. Patient states that this is significantly worse over the past few weeks. He denies orthopnea or shortness of breath with exertion, chest pain, palpitations. No changes in his diet. Patient was evaluated at the [facility] and had an elevated troponin of 0.06 and an EKG which showed a left bundle branch block which was new from previous. Creatinine obtained at the AL which was 1.53 and unchanged from our previous labs. BNP obtained to the [facility] was 8339. On reevaluation the emergency department he denies significant shortness of breath or chest pain. He is resting comfortably in the bed. He will be admitted to the hospitalist for further care and evaluation of his likely acute congestive heart failure with elevated troponin.
[2017-09-20] MEDS ORDERED: Furosemide 20 MG/2 ML VIAL IVP ONE (14:07)
[2017-09-20] MEDS ORDERED: Aspirin 81 MG TAB.CHEW PO ONE (15:31)
--- NOTE | 2017-09-20 15:46 | Internal Med History&Physical ---
Date of Encounter: 09/20/17 Time of Encounter: 16:28 Internal Medicine - H&P: HPI Admitted From: Home Plans for Post Hospital Care: Home History of present illness: Mr. Robertson is a 86 year old male with history of hypertension [facility] [facility] for further evaluation of progressive worsening of lower extremity swelling that progressed to generalized and elevated troponin. Initial lab was done today at [facility] with finding of significant elevation in BNP, slightly elevated troponin and creatinine level. Initial evaluation in ER with finding of stable vital signs except mild elevation of blood pressure. Labs were not repeated as it was done today at [facility] with finding of troponin 0.06, creatinine 1.53, BNP 8339. EKG with finding of likely left bundle branch block compared with last visit. In ER Lasix IV 1 was given. ER physician called on-call hospitalist for admission with the diagnosis of acute heart failure leading to anasarca, raised troponin that needs further cardiac evaluation. Patient never had cardiac evaluation done in the past. As per patient he has intermittent lower extremity swelling but the last couple of weeks it has been progressively worse and spread to upper extremity and even face therefore he got concerned and went to the clinic today. During my interview patient appeared comfortable. Patient denies any active chest pain, shortness of breath, nausea, vomiting, headache, dizziness or abdominal pain, diarrhea, urinary complaints. He has chronic intermittent cough but seems like getting better. No history of smoking , alcohol. No recent travel, trauma, fall. Past Med Surg Social Fam HX - Past Medical History Medical history: hypertension, other Psychiatric history: no psych history - Social History Smoking Status: Never smoker Smokeless Tobacco Status: No Alcohol use: none Drug use: none - Family History Father Living Status: Internal Medicine - H&P: Meds Atenolol [Tenormin] 25 mg PO DAILY 06/28/17 [History] Diltiazem CD (24hr) [Cardizem CD] 120 mg PO QAM 06/28/17 [History] Diltiazem CD (24hr) [Cardizem CD] 120 mg PO QPM 06/28/17 [History] Diltiazem CD (24hr) [Cardizem CD] 300 mg PO QAM 06/28/17 [History] Finasteride [Proscar] 5 mg PO DAILY 06/28/17 [History] Hydrophilic Ointment [Aquabase] 1 appl TP BID 06/28/17 [History] Lisinopril/Hydrochlorothiazide [Zestoretic 20-12.5 mg Tablet] 1 each PO BID [History] Sodium Chloride 5% OPTH Oint [Becca-128] 1 appl BOTH EYES HS 06/28/17 [History] Tamsulosin [Flomax] 0.4 mg PO DAILY 06/28/17 [History] Vit C/E/Zn/Coppr/Lutein/Zeaxan [Preservision Areds 2 Softgel] 1 cap PO BID 06/28 [History] Ferrous Sulfate 325 mg PO BID #60 tablet 06/30/17 [Rx] 3 Allergy/AdvReac Type Severity Reaction Status Date / Time No Known Allergies Allergy Verified 06/28/17 09:47 All Systems PM: A 10-system review of systems was performed and is negative for pertinent findings except as documented above in the HPI. - Constitutional Vitals: Temp Pulse Resp BP Pulse Ox 97.8 F 78 18 153/59 95 09/20/17 13:18 09/20/17 13:18 09/20/17 13:18 09/20/17 13:18 09/20/17 13:18 Exam: General appearance: No acute distress, obese, A&O X 3 Head exam: Atraumatic Eye exam: EOMI, PERRLA ENT exam: Moist oral mucosa Neck nontender, supple Respiratory exam: Slight decreased breath sound on the right side but clear to auscultation on left side Cardiovascular exam: Regular rate and rhythm, no systolic murmur Abdominal exam: Soft, nontender, nondistended, positive bowel sounds Extremities exam: No calf tenderness, +3 bilateral pedal edema Skin-no rash, warm, dry, intact Neurological exam: Alert, awake, oriented 3, CN II-XII intact, no focal deficits. No facial droop. Normal speech. Normal gait. Romberg sign negative - Assessment and plan (1) Bilateral lower extremity edema Current Visit: Yes Status: Acute Assessment and plan: Acute on chronic, progressively worsening leading to anasarca. No acute respiratory distress. Significant elevation of BNP. Never had cardiac evaluation therefore echocardiogram ordered and consulted pharmacy technology instructor. Lasix 40 mg IV twice a day, strict I&O's and daily weights (2) Elevated troponin Current Visit: Yes Status: Acute Assessment and plan: Minimal elevation of troponin, likely new onset of enuresis and EKg but patient is not symptomatic and appear quite stable. Therefore serial troponin, telemetry ordered. Start aspirin, beta piedad, lisinopril, statin, oxygen when necessary. FLP ordered. Will consider therapeutic dose of anticoagulation if rise in troponin or patient becomes symptomatic. [employer] consultation. (3) HTN (hypertension) Current Visit: Yes Status: Chronic Assessment and plan: Close monitoring. Continue home dose of lisinopril 40 mg daily. Will hold hydrochlorothiazide at this time. Continue Lasix as mentioned. Consider beta piedad. Hydralazine as needed. Qualifiers: Hypertension type: essential hypertension Qualified Code(s): I10 - Essential (primary) hypertension (4) DVT prophylaxis Current Visit: Yes Status: Acute Assessment and plan: Heparin 5000 unit subcutaneous every 8 hours. SCDs. - Time Spent With Patient Total time spent is greater than 50% in coordination of care (as documented) at patient's floor/unit and/or counseling patient: 25 - 35 minutes
[2017-09-20] MEDS ORDERED: Naloxone 0.4 MG/ML INJ IVP PRN (16:35)
[2017-09-20] MEDS: Furosemide 40 MG/4 ML VIAL IVP SCH (20:39)
[2017-09-21 05:24] LABS: Basophils % 0.4 %; Eosinophils # 0.1 K/mcL (0.0-0.6); Eosinophils % 1.4 %; Hematocrit 47.8 % (37.5-50.1); Hemoglobin 14.6 g/dL (12.9-16.9); Immature Granulocytes % 0.8 % (0-4); Lymphocytes # 2.9 K/mcL (0.6-4.6); Lymphocytes % 30.4 %; Mean Corpuscular HGB Conc 30.5 g/dL (31.6-35.5); Mean Corpuscular Hemoglobin 27.3 pg (28.0-33.3); Mean Corpuscular Volume 89.5 fL (83.0-100.0); Monocytes # 0.7 K/mcL (0.0-1.3); Monocytes % 7.2 %; Neutrophils # 5.7 K/mcL (1.6-8.9); Platelet Count 182 K/mcL (140-400); Red Blood Count 5.34 M/mcL (4.19-5.50); Red Cell Distribution Width 18.2 % (11.5-14.5); Segmented Neutrophils % 59.8 %
[2017-09-21 05:41] LABS: Calcium 9.1 mg/dL (8.6-10.3); Chol/HDL Ratio 4.3 (0-4.9); Potassium 3.2 mEq/L (3.5-5.1)
[2017-09-21] MEDS: Aspirin Enteric Coated 81 MG Tablet PO SCH (07:45)
[2017-09-21] MEDS: Finasteride 5 MG TABLET PO SCH (07:45)
[2017-09-21] MEDS: Lisinopril 20 MG TABLET PO SCH (07:45)
[2017-09-21] MEDS: Furosemide 40 MG/4 ML VIAL IVP SCH ×2 (07:45→20:26)
[2017-09-21] MEDS ORDERED: Diltiazem CD (24hr) 180 MG CAPSULE PO SCH (09:00)
[2017-09-21] MEDS ORDERED: (Budesonide [Entocort Ec] 9 MG) PO SCH (09:00)
[2017-09-21] MEDS ORDERED: Diltiazem CD (24hr) 120 MG CAPSULE PO SCH ×2 (09:00→21:00)
[2017-09-21] MEDS: ENTOCORT 3 MG PO SCH (09:30)
[2017-09-21] MEDS ORDERED: amLODIPine 5 MG TABLET PO SCH (10:30)
[2017-09-21] MEDS ORDERED: Diltiazem CD (24hr) 300 MG CAPSULE PO ONE (10:30)
--- NOTE | 2017-09-21 11:53 | Cardiology Consult Note ---
<Charisse Rowland - Last Filed: 09/21/17 12:03> Date of Encounter: 09/21/17 Time of Encounter: 09:30 Assessment and Plan (1) CHF (congestive heart failure) Current Visit: Yes Status: Suspected Per cardiology: -Significant leg edema noted, reports chronic, however worse from baseline -BNP 400s. -Chest x-ray with no acute abnormalities. -TTE pending, no previous TTE to review. -On lasix 40mg IV BID. -Strict i/os, daily, weights fluid restritcion. -Agree with IV diuresis. -Further recommendations pending TTE. Qualifiers: Heart failure type: unspecified Heart failure chronicity: unspecified Qualified Code(s): I50.9 - Heart failure, unspecified (2) Elevated troponin Current Visit: Yes Status: Acute Per cardiology: -Troponins 0.06 x3 in the setting of suspect CHF, HTN. -Denies chest pain. -ECG with SR, LBBB. Previous ECG reviewed with incomplete LBBB. -TTE pending. -On asa. -Do not suspect NSTEMI, suspect demand ischemia related to above. -Further recommendations pending TTE. -Beta piedad added. (3) HTN (hypertension) Current Visit: Yes Status: Chronic Per cardiology: -Known HTN. -BP currenlty 180-200s systolic. -On cardizem 420mg daily and lisinopril 40mg daily in outpateint setting -Will stop cardizem. -Will start beta piedad. -PRN hydralazine. -Will continue to monitor, will uptitrate BB as tolerated. Qualifiers: Hypertension type: essential hypertension Qualified Code(s): I10 - Essential (primary) hypertension Discussion w patient/family: The assessment and plan as outlined above was discussed with the patient and/or family members who expressed understanding and agreement. All questions were answered. Thank you for involving us in the care of your patient. Please call with any questions. Discussed and reviewed with . History of Present Illness Consult date: 09/20/17 Requesting physician: Gabby Cuellar Consult reason: CHF Chief complaint: swelling in legs History of present illness: Mr. Robertson is a 86 year old male with a relevant past medical history of HTN , chronic leg edema, ulcerative colitis. Patient [facility] to [facility] with complaints of increased leg edema. Patient reports has had chronic edema, however states edema has been worsening lately. Patient denies shortness of breath. Denies chest pain. Patient states after IV lasix, edema has improved. Past Med Surg Social Fam HX - Past Medical History Attestation: Yes The following information was validated with the patient. Source: patient, old records reviewed Medical history: hypertension, other Psychiatric history: no psych history - Social History Smoking Status: Never smoker Smokeless Tobacco Status: No Alcohol use: none Drug use: none - Family History Father Name: Mitch Robertson Living Status: Age at : 92 Cause of : "old age" Medications and Allergies Diltiazem CD (24hr) [Cardizem CD] 120 mg PO QAM 06/28/17 [History] Finasteride [Proscar] 5 mg PO DAILY 06/28/17 [History] Hydrophilic Ointment [Aquabase] 1 appl TP BID 06/28/17 [History] Lisinopril/Hydrochlorothiazide [Zestoretic 20-12.5 mg Tablet] 1 each PO BID [History] Sodium Chloride 5% OPTH Oint [Becca-128] 1 appl BOTH EYES HS 06/28/17 [History] Tamsulosin [Flomax] 0.4 mg PO DAILY 06/28/17 [History] Vit C/E/Zn/Coppr/Lutein/Zeaxan [Preservision Areds 2 Softgel] 1 cap PO BID 06/28 [History] Aspirin [Lo-Dose Aspirin EC] 81 mg PO DAILY 09/20/17 [History] Budesonide [Entocort EC] 9 mg PO DAILY 09/20/17 [History] Lactobacillus Acidophilus [Acidophilus] 1 cap PO DAILY 09/20/17 [History] 3 Allergy/AdvReac Type Severity Reaction Status Date / Time No Known Allergies Allergy Verified 06/28/17 09:47 All Systems Review: The remainder of the systems were reviewed and are negative - Cardiovascular Cardiovascular: as per HPI, leg edema Physical Examination Vital Signs, Last 4 Hours Temp Pulse Resp BP Pulse Ox 09/21/17 11:36 90 170/66 09/21/17 11:04 98.2 F 96 14 189/45 94 09/21/17 09:39 74 199/91 General: Conversant, No Apparent Distress HEENT: Atraumatic, Normocephaly, Mucus Membranes Moist Neck: No JVD, Normal carotid pulses Cardiac: Reg Rate and Rhythm, Normal S1 and S2, No Murmur Lungs: Normal Breath Sounds, No Wheeze, Rales, Rhonchi Neuro: Alert and responsive, No focal deficits noted Abdomen: Soft, Non-Tender Skin: No rashes noted on visualized skin Musculoskeletal: No Chest Wall Tenderness Extremities: No Clubbing, No Cyanosis, Normal Pulses, Other (3+ bilateral lower extremity pitting edema. ) Results 09/21/17 04:36 09/21/17 04:36 Lab Results Impressions Chest X-Ray 09/20/17 16:41 IMPRESSION: No acute cardiopulmonary abnormality. D/ / Selvin Juan / Selvin Juan Interpreting Provider: Selvin Juan Active Medications Aspirin (Aspirin Ec) 81 mg PO DAILY [facility] Stop: 03/23/18 09:01 Last Admin: 09/21/17 07:45 Dose: 81 mg Carvedilol (Coreg) 3.125 mg PO BIDWM [facility] PRN Reason: Protocol Stop: 03/23/18 10:59 Last Admin: 09/21/17 11:40 Dose: 3.125 mg Ferrous Sulfate (Ferrous Sulfate) 325 mg PO DAILY@0800 [facility] Stop: 03/24/18 08:01 Finasteride (Proscar) 5 mg PO DAILY [facility] PRN Reason: Protocol Stop: 03/23/18 09:01 Last Admin: 09/21/17 07:45 Dose: 5 mg Furosemide (Lasix) 40 mg IVP BID [facility] Stop: 03/22/18 21:01 Last Admin: 09/21/17 07:45 Dose: 40 mg Hydralazine HCl (Hydralazine) 10 mg IVP Q6HR PRN PRN Reason: Hypertension Stop: 03/23/18 10:28 Hydrophilic Ointment (Aquaphor) 1 appl TP BID [facility] Stop: 03/23/18 09:01 Last Admin: 09/21/17 07:49 Dose: Not Given Lisinopril (Zestril) 40 mg PO DAILY [facility] PRN Reason: Protocol Stop: 03/23/18 09:01 Last Admin: 09/21/17 07:45 Dose: 40 mg Naloxone HCl (Narcan) 0.4 mg IVP Q2MIN PRN PRN Reason: SEE COMMENTS Stop: 03/22/18 16:36 Pharmacy Profile Note (Patient Taking Own Medication) 1 each PO DAILY [facility] Stop: 03/23/18 09:01 Last Admin: 09/21/17 09:30 Dose: Not Given Sodium Chloride (Becca-128) 1 appl BOTH EYES HS [facility] Stop: 03/23/18 21:01 Tamsulosin HCl (Flomax) 0.4 mg PO HS [facility] PRN Reason: Protocol Stop: 03/23/18 21:01 Laboratory Tests 06/30/17 08/23/17 09/20/17 07:53 16:39 16:54 Hgb Potassium Creatinine 1.52 H 1.53 H Troponin I B-Natriuretic Peptide 473 H 09/20/17 09/20/17 09/21/17 16:54 23:08 04:36 Hgb 14.6 Potassium Creatinine Troponin I 0.06 H* 0.06 H* B-Natriuretic Peptide 09/21/17 09/21/17 04:36 04:36 Hgb Potassium 3.2 L Creatinine 1.79 H Troponin I 0.06 H* B-Natriuretic Peptide - Imaging and Cardiology Chest Xray: report reviewed Echo: pending - EKG Interpretation EKG results cardiology: personally reviewed (ECG from [place] with SR, LBBB, HR 80s.) , other (Telemetry reviewed with average HR previous 12 hours noted to be 85, SR. PACs noted, short runs of atrial tachycardia noted.) Consult Discharge Plan - Plan Referrals: [place],PCP [Primary Care Provider] - <Jinny Ramsey - Last Filed: 09/21/17 17:17> Date of Encounter: 09/21/17 - Attending Attestation I examined this patient and my medical decision-making was reviewed with the [employer]. I agree with the documented findings, disposition and treatment plan as described. Mr. Robertson presents with significant LE edema and uncontrolled hypertension. Troponins mildly elevated, flat likely representing demand ischemia. ECG demonstrates mild increase in QRS widening but similar when compared to prior. Agree with IV diuresis, echo, fluid restriction, daily weights and BP control. Further recommendations to follow re-evaluation and testing. Assessment and Plan Discussion w patient/family: The assessment and plan as outlined above was discussed with the patient and/or family members who expressed understanding and agreement. All questions were answered. Thank you for involving us in the care of your patient. Please call with any questions. History of Present Illness History of present illness: Mr. Robertson is a 86 year old male All Systems Review: The remainder of the systems were reviewed and are negative Physical Examination Vital Signs, Last 4 Hours Temp Pulse Resp BP Pulse Ox 09/21/17 15:24 98.7 F 85 14 168/71 95 Results 09/21/17 04:36 09/21/17 04:36 Lab Results 09/20/17 09/20/17 09/20/17 16:54 16:54 23:08 WBC Hgb Hct Plt Count Sodium Potassium Chloride Carbon Dioxide BUN Creatinine Glucose Calcium Troponin I 0.06 H* 0.06 H* B-Natriuretic Peptide 473 H 09/21/17 09/21/17 09/21/17 04:36 04:36 04:36 WBC 9.5 Hgb 14.6 Hct 47.8 Plt Count 182 Sodium 145 Potassium 3.2 L Chloride 104 Carbon Dioxide 30 H BUN 27 H Creatinine 1.79 H Glucose 105 Calcium 9.1 Troponin I 0.06 H* B-Natriuretic Peptide
--- NOTE | 2017-09-21 16:54 | Internal Med Progress Note ---
Date of Encounter: 09/21/17 Time of Encounter: 16:52 - Assessment and plan (1) HTN (hypertension) Current Visit: Yes Status: Chronic Assessment and plan: Patient was on Cardizem 420mg every a.m. and 120mg at night. Also lisinopril 40 mg daily Cardiology consulted Stopped Cardizem and started beta piedad which will be up titrated as tolerated Monitor blood pressure closely. Qualifiers: Hypertension type: essential hypertension Qualified Code(s): I10 - Essential (primary) hypertension (2) Bilateral lower extremity edema Current Visit: Yes Status: Acute Assessment and plan: Acute on chronic CHF, now with anasarca. No acute respiratory distress. BNP 473. Echocardiogram report pending Lasix 40 mg IV twice a day, strict I&O's and daily weights Cardiology consulted Legs elevated when out of bed (3) Elevated troponin Current Visit: Yes Status: Acute Assessment and plan: Cardiology following. Troponin 0.063 in the setting of CHF and hypertension with no chest pain. EKG was sinus rhythm and left bundle branch block, previous EKG reviewed with incomplete left bundle branch block. Echocardiogram gram report pending Continue aspirin Cardiology does not suspect an STEMI but demand ischemia related to above problems. Continue beta piedad as ordered Further recommendations pending echocardiogram report (4) DVT prophylaxis Current Visit: Yes Status: Acute Assessment and plan: Heparin 5000 unit subcutaneous q 8 hours. Would not tolerate SCDs with swelling (5) CHF (congestive heart failure) Current Visit: Yes Status: Suspected Assessment and plan: Cardiology consult BNP 473 Chest x-ray with no acute abnormalities, echocardiogram report is pending. Continue Lasix 40 mg IV twice a day Daily weights I's and O's Appreciate cardiology input Qualifiers: Heart failure type: unspecified Heart failure chronicity: unspecified Qualified Code(s): I50.9 - Heart failure, unspecified - Time Spent With Patient Total time spent is greater than 50% in coordination of care (as documented) at patient's floor/unit and/or counseling patient: - Subjective Interval history: Patient sitting up in a chair with no verbalize complaints. He states his lower extremity swelling is improving but still not back to baseline. He states the left lower extremity is always larger than the right. He has no chest pain, shortness of breath, fever or chills. Discussed the cardiology will be seen to help manage his care. He verbalized understanding and agreement - Constitutional Vitals: Temp Pulse Resp BP Pulse Ox 98.7 F 85 14 168/71 95 09/21/17 15:24 09/21/17 15:24 09/21/17 15:24 09/21/17 15:24 09/21/17 15:24 General appearance: Present: cooperative, A&O X 3, pleasant, answers questions appropriately - Head Head exam: Present: atraumatic, normocephalic - Eye Eye exam: Present: PERRL, conjuntiva pink, sclera anicteric Pupils: Present: PERRL - Neck Neck exam general surgery: Present: supple, trachea midline. Absent: lymphadenopathy - Respiratory Respiratory exam: Present: decreased breath sounds. Absent: accessory muscle use, rales, rhonchi, wheezes - Cardiovascular Cardiovascular exam: Present: RRR, +S1, +S2. Absent: diastolic murmur, gallop, rubs, systolic murmur - GI/Abdominal GI/Abdominal exam: Present: normal bowel sounds, soft, no peritoneal signs. Absent: distended, tenderness - Extremities Exam Extremities exam: Present: pedal edema, warm, radial pulses palpable and symmetrical. Absent: calf tenderness, cyanotic - Neurological Exam Neurological exam: Present: alert, CN II-XII intact, oriented X3, no focal deficits. Absent: pronater drift, facial droop, speech deficit - Skin Skin exam: Present: dry, intact, normal color, warm Internal Medicine: Result - Labs CBC & Chem 7: 09/21/17 04:36 09/21/17 04:36 Labs: Short CBC 09/21/17 Range/Units 04:36 WBC 9.5 (4.3-11.1) K/mcL Hgb 14.6 (12.9-16.9) g/dL Hct 47.8 (37.5-50.1) % Plt Count 182 (140-400) K/mcL Neutrophils # 5.7 (1.6-8.9) K/mcL BMP 09/21/17 04:36 Sodium 145 Potassium 3.2 L Chloride 104 Carbon Dioxide 30 H BUN 27 H Creatinine 1.79 H Glucose 105 Calcium 9.1 Cardiac Enzymes 09/20/17 09/20/17 09/21/17 Range/Units 16:54 23:08 04:36 Troponin I 0.06 H* 0.06 H* 0.06 H* (< 0.04) ng/mL - Impressions Impressions Chest X-Ray 09/20/17 16:41 IMPRESSION: No acute cardiopulmonary abnormality. D/ / Selvin Juan / Selvin Juan Interpreting Provider: Selvin Juan Consult Discharge Plan - Plan Referrals: [facility] [Primary Care Provider] -
[2017-09-21] MEDS: Sodium Chloride 5% OPTH 3.5 GM TUBE BOTH EYES SCH (20:26)
[2017-09-22 04:58] LABS: Basophils % 0.4 %; Eosinophils # 0.1 K/mcL (0.0-0.6); Eosinophils % 0.9 %; Hemoglobin 13.7 g/dL (12.9-16.9); Immature Granulocytes % 1.4 % (0-4); Lymphocytes # 2.4 K/mcL (0.6-4.6); Lymphocytes % 27.7 %; Mean Corpuscular HGB Conc 31.1 g/dL (31.6-35.5); Mean Corpuscular Hemoglobin 27.5 pg (28.0-33.3); Mean Corpuscular Volume 88.2 fL (83.0-100.0); Mean Platelet Volume 10.1 fL (9.4-12.4); Monocytes # 0.6 K/mcL (0.0-1.3); Monocytes % 6.8 %; Neutrophils # 5.3 K/mcL (1.6-8.9); Platelet Count 177 K/mcL (140-400); Red Blood Count 4.99 M/mcL (4.19-5.50); Segmented Neutrophils % 62.8 %
[2017-09-22 05:20] LABS: Calcium 8.8 mg/dL (8.6-10.3); Potassium 2.9 mEq/L (3.5-5.1)
[2017-09-22 08:50] LABS: Bacteria,Urine None Seen per hpf (None-Few); Bilirubin,Urine Negative (Negative); Blood,Urine Small (Negative); Clarity,Urine Clear (Clear); Color,Urine Yellow (Yellow); Glucose,Urine (UA) Normal (Normal); Hyaline Casts,Urine None Seen per lpf (None-Few); Ketones,Urine Negative (Negative); Leukocyte Esterase,Urine Negative (Negative); Nitrite,Urine Negative (Negative); PH,Urine 7.5 pH Units (5.0-8.0); Protein,Urine 100 mg/dL (Neg-Trace); RBC,Urine 0-3 per hpf (0-3); Specific Gravity,Urine 1.012 (1.010-1.025); Squamous Epithelial Cell,Urine Moderate per lpf (None-Few); Urobilinogen,Urine Normal (Normal); WBC,Urine 0-3 per hpf (0-3)
[2017-09-22] MEDS ORDERED: Diltiazem CD (24hr) 120 MG CAPSULE PO SCH (09:00)
[2017-09-22] MEDS ORDERED: Diltiazem CD (24hr) 300 MG CAPSULE PO SCH (09:00)
[2017-09-22] MEDS: Lisinopril 20 MG TABLET PO SCH (09:38)
[2017-09-22] MEDS: Aspirin Enteric Coated 81 MG Tablet PO SCH (09:39)
[2017-09-22] MEDS: Furosemide 40 MG/4 ML VIAL IVP SCH ×2 (09:39→17:55)
[2017-09-22] MEDS: Finasteride 5 MG TABLET PO SCH (09:39)
[2017-09-22] MEDS: ENTOCORT 3 MG PO SCH (09:40)
[2017-09-22] MEDS ORDERED: Diltiazem CD (24hr) 120 MG CAPSULE PO ONE (10:00)
--- NOTE | 2017-09-22 11:40 | Cardiology Progress Note ---
Date of Encounter: 09/22/17 Time of Encounter: 10:30 Assessment and Plan (1) CHF (congestive heart failure) Current Visit: Yes Status: Acute Per cardiology: -Significant leg edema noted, reports chronic, however worse from baseline -BNP 400s. -Chest x-ray with no acute abnormalities. -TTE with LVEF 45%, global hypokinesis, mildly dilated LV, indeterminate diastolic function, normal RV structure and function, no significant valvular dysufnction, small pericardial effusion. -On lasix 40mg IV BID. -On beta piedad, not on mikaela/arb due to renal function. -Strict i/os, daily, weights fluid restritcion. -Agree with IV diuresis. -Patient now reports had an echo at [facility] in the past year and was "normal." -With reduction in LVEF, recommend ischemic evaluation once volume status imporved and BP better controlled. Will obtain records from [place] to determine if reduction in LVEF is new. Qualifiers: Heart failure type: systolic Heart failure chronicity: acute Qualified Code(s): I50.21 - Acute systolic (congestive) heart failure (2) Elevated troponin Current Visit: Yes Status: Acute Per cardiology: -Troponins 0.06 x3 in the setting of suspect CHF, HTN. -Denies chest pain. -ECG with SR, LBBB. Previous ECG reviewed with incomplete LBBB. -TTE with LVEF 45%, global hypokinesis. -On asa, beta piedad. -Do not suspect NSTEMI, suspect demand ischemia related to above. (3) HTN (hypertension) Current Visit: Yes Status: Chronic Per cardiology: -Known HTN. -BP currenlty 160-170s systolic. -On cardizem 420mg daily and lisinopril 40mg daily in outpateint setting -Cardizem stopped and beta piedad started yesterday. -BP remains elevated, will increase beta piedad today. -Will continue to monitor, will uptitrate BB as tolerated. Qualifiers: Hypertension type: essential hypertension Qualified Code(s): I10 - Essential (primary) hypertension Discussion w patient/family: The assessment and plan as outlined above was discussed with the patient who expressed understanding and agreement. All questions were answered. Thank you for involving us in the care of your patient. Please call with any questions. Discussed and reviewed with Subjective Principal diagnosis: CHF Interval history: Patient reports he feels that edema is improved. Denies shortness of breath, denies chest pain. Objective Vital Signs, Last 4 Hours Temp Pulse Resp BP Pulse Ox 09/22/17 10:23 98.2 F 84 16 194/92 93 General: Conversant, No Apparent Distress HEENT: Atraumatic, Normocephaly, Mucus Membranes Moist Neck: No JVD, Normal carotid pulses Cardiac: Reg Rate and Rhythm, Normal S1 and S2, No Murmur Lungs: Normal Breath Sounds, No Wheeze, Rales, Rhonchi Neuro: Alert and responsive, No focal deficits noted Abdomen: Soft, Non-Tender Skin: No rashes noted on visualized skin Musculoskeletal: No Chest Wall Tenderness Extremities: No Clubbing, No Cyanosis, Normal Pulses, Other (2+ bilateral lower extremity pitting edema. ) Results 09/22/17 03:48 09/22/17 03:48 Lab Results Impressions Echocardiogram 09/21/17 08:05 Impressions: LVEF 45%. Global appearing mild reduction in LV systolic function. Mildly dilated left ventricle. Indeterminate diastolic function. Normal right ventricular structure and function. No significant valvular dysfunction. There is a small pericardial effusion present. There is no echocardiographic evidence of tamponade. Left Ventricular Wall Motion: Rest Echo Findings The apex, apical inferior, mid inferior, basal inferior, apical anterior, mid anterior, basal anterior, apical septal, mid inferior septal, basal inferior septal, apical lateral, mid anterior lateral, basal anterior lateral, mid anterior septal, basal anterior septal and basal inferior lateral mcgee were hypokinetic. The mid inferior lateral wall was not visualized. Findings: Study Quality * Technically challenging due to body habitus. ECG Findings * Normal sinus rhythm with ectopy. Left Ventricle * Mildly dilated left ventricle. * Indeterminate diastolic function. * LVEF 45%. Right Ventricle * Normal right ventricular structure and function. Left Atrium * Moderate-severely dilated left atrium. Right Atrium * Normal right atrial size. Aortic Valve * No aortic regurgitation. * Aortic valve not well visualized. * No aortic stenosis. Mitral Valve * No mitral regurgitation. * Normal mitral valve structure. * No mitral stenosis. Tricuspid Valve * Tricuspid valve not well visualized. * Trace tricuspid regurgitation. Pulmonic Valve * Pulmonic valve is not well visualized. * No pulmonic stenosis. * No pulmonic regurgitation. Pulmonary Artery * Pulmonary artery not well visualized. Aorta * Normally sized aortic root. Pericardium * There is a small pericardial effusion present. * There is no echocardiographic evidence of tamponade. Interatrial Septum * No evidence of PFO by color Doppler. IVC * The IVC is not well evaluated. Active Medications Aspirin (Aspirin Ec) 81 mg PO DAILY [facility] Stop: 03/23/18 09:01 Last Admin: 09/22/17 09:39 Dose: 81 mg Carvedilol (Coreg) 6.25 mg PO BIDWM [facility] PRN Reason: Protocol Stop: 03/24/18 17:01 Ferrous Sulfate (Ferrous Sulfate) 325 mg PO DAILY@0800 [facility] Stop: 03/24/18 08:01 Last Admin: 09/22/17 09:38 Dose: 325 mg Finasteride (Proscar) 5 mg PO DAILY [facility] PRN Reason: Protocol Stop: 03/23/18 09:01 Last Admin: 09/22/17 09:39 Dose: 5 mg Furosemide (Lasix) 40 mg IVP BIDDIURETIC [facility] Stop: 03/24/18 08:16 Last Admin: 09/22/17 09:39 Dose: 40 mg Hydralazine HCl (Hydralazine) 10 mg IVP Q6HR PRN PRN Reason: Hypertension Stop: 03/23/18 10:28 Hydrophilic Ointment (Aquaphor) 1 appl TP BID [facility] Stop: 03/23/18 09:01 Last Admin: 09/22/17 09:39 Dose: Not Given Lisinopril (Zestril) 40 mg PO DAILY [facility] PRN Reason: Protocol Stop: 03/23/18 09:01 Last Admin: 09/22/17 09:38 Dose: 40 mg Naloxone HCl (Narcan) 0.4 mg IVP Q2MIN PRN PRN Reason: SEE COMMENTS Stop: 03/22/18 16:36 Pharmacy Profile Note (Patient Taking Own Medication) 1 each PO DAILY [facility] Stop: 03/23/18 09:01 Last Admin: 09/22/17 09:40 Dose: Not Given Potassium Chloride (Potassium Chloride) 40 meq PO BID [facility] Stop: 03/24/18 09:01 Last Admin: 09/22/17 11:00 Dose: 40 meq Sodium Chloride (Becca-128) 1 appl BOTH EYES HS [facility] Stop: 03/23/18 21:01 Last Admin: 09/21/17 20:26 Dose: 1 appl Tamsulosin HCl (Flomax) 0.4 mg PO HS [facility] PRN Reason: Protocol Stop: 03/23/18 21:01 Last Admin: 09/21/17 20:26 Dose: 0.4 mg Laboratory Tests 09/22/17 09/22/17 03:48 03:48 Hgb 13.7 Potassium 2.9 L Creatinine 1.73 H - Imaging and Cardiology Chest Xray: report reviewed Echo: report reviewed - EKG Interpretation EKG results cardiology: other (Telemetry reviewed with average HR previous 12 hours noted to be 89, SR. PVCs, PACS noted. One run of atrial tachycardia noted. ) Consult Discharge Plan - Plan [facility]errals: [facility] [Primary Care Provider] -
--- NOTE | 2017-09-22 14:25 | Internal Med Progress Note ---
Date of Encounter: 09/22/17 Time of Encounter: 14:23 - Assessment and plan (1) HTN (hypertension) Current Visit: Yes Status: Chronic Assessment and plan: Patient was on Cardizem 420mg every a.m. and 120mg at night. Also lisinopril 40 mg daily Cardiology consulted Stopped Cardizem and started beta piedad which will be up titrated as tolerated Continue to monitor blood pressure closely. Hypertensive this morning Qualifiers: Hypertension type: essential hypertension Qualified Code(s): I10 - Essential (primary) hypertension (2) Bilateral lower extremity edema Current Visit: Yes Status: Acute Assessment and plan: Acute on chronic CHF, now with anasarca. No acute respiratory distress. BNP 473. Echocardiogram report reviewed with LVEF 45%. Global appearing mild reduction in LV systolic function. Mildly dilated left ventricle. Indeterminate diastolic function. Normal right ventricular structure and function. No significant valvular dysfunction. There is a small pericardial effusion present. There is no echocardiographic evidence of tamponade. Lasix 40 mg IV twice a day, strict I&O's and daily weights Cardiology following and recommend ischemic evaluation once volume status improved and blood pressure better controlled. Reduction in LVEF has been noted. They are obtaining records from the [place]. Legs elevated when out of bed (3) Elevated troponin Current Visit: Yes Status: Acute Assessment and plan: Cardiology following. Troponin 0.063 in the setting of CHF and hypertension with no chest pain. EKG sinus rhythm and left bundle branch block, previous EKG reviewed with incomplete left bundle branch block. Echocardiogram report pending Continue aspirin Cardiology does not suspect a NSTEMI but demand ischemia related to above problems. Continue beta piedad as ordered Cardiology plans ischemic workup when volume status and blood pressure improved (4) DVT prophylaxis Current Visit: Yes Status: Acute Assessment and plan: Heparin 5000 unit subcutaneous every 8 hours. Would not tolerate SCDs with swelling (5) CHF (congestive heart failure) Current Visit: Yes Status: Acute Assessment and plan: Cardiology following BNP 473 Chest x-ray with no acute abnormalities, echocardiogram reviewed. Continue Lasix 40 mg IV twice a day Daily weights I's and O's Appreciate cardiology input Qualifiers: Heart failure type: systolic Heart failure chronicity: acute Qualified Code(s): I50.21 - Acute systolic (congestive) heart failure (6) Hypokalemia Current Visit: Yes Status: Acute Assessment and plan: replace and monitor - Time Spent With Patient Total time spent is greater than 50% in coordination of care (as documented) at patient's floor/unit and/or counseling patient: - Subjective Interval history: Patient lying flat in bed. He states his breathing is much better and he is feeling better overall. He also thinks that his swelling is improving. He denies any chest pain shortness of breath, nausea, vomiting, fever, or chills. - Constitutional Vitals: Temp Pulse Resp BP Pulse Ox 98.2 F 84 16 194/92 93 09/22/17 10:23 09/22/17 10:23 09/22/17 10:23 09/22/17 10:23 09/22/17 10:23 General appearance: Present: cooperative, A&O X 3, pleasant, answers questions appropriately - Head Head exam: Present: atraumatic, normocephalic - Eye Eye exam: Present: PERRL, conjuntiva pink, sclera anicteric Pupils: Present: PERRL - Neck Neck exam general surgery: Present: supple, trachea midline. Absent: lymphadenopathy - Respiratory Respiratory exam: Present: decreased breath sounds. Absent: accessory muscle use, rales, rhonchi, wheezes Additional comments: Able to lie flat in bed without difficulty - Cardiovascular Cardiovascular exam: Present: RRR, +S1, +S2. Absent: diastolic murmur, gallop, rubs, systolic murmur - GI/Abdominal GI/Abdominal exam: Present: normal bowel sounds, soft, no peritoneal signs. Absent: distended, tenderness - Extremities Exam Extremities exam: Present: pedal edema, warm, radial pulses palpable and symmetrical. Absent: calf tenderness, cyanotic Additional comments: Edema knees to toes bilaterally - Neurological Exam Neurological exam: Present: alert, CN II-XII intact, oriented X3, no focal deficits. Absent: pronater drift, facial droop, speech deficit - Skin Skin exam: Present: dry, normal color, warm Internal Medicine: Result - Labs CBC & Chem 7: 09/22/17 03:48 09/22/17 03:48 Labs: Short CBC 09/22/17 Range/Units 03:48 WBC 8.5 (4.3-11.1) K/mcL Hgb 13.7 (12.9-16.9) g/dL Hct 44.0 (37.5-50.1) % Plt Count 177 (140-400) K/mcL Neutrophils # 5.3 (1.6-8.9) K/mcL BMP 09/22/17 03:48 Sodium 141 Potassium 2.9 L Chloride 102 Carbon Dioxide 29 BUN 31 H Creatinine 1.73 H Glucose 119 H Calcium 8.8 Urine 09/22/17 Range/Units 08:24 Urine Color Yellow (Yellow) Urine Clarity Clear (Clear) Urine pH 7.5 (5.0-8.0) pH Units Ur Specific Mclean 1.012 (1.010-1.025) Urine Protein 100 H (Neg-Trace) mg/dL Urine Glucose (UA) Normal (Normal) mg/dL - Impressions Impressions Echocardiogram 09/21/17 08:05 Impressions: LVEF 45%. Global appearing mild reduction in LV systolic function. Mildly dilated left ventricle. Indeterminate diastolic function. Normal right ventricular structure and function. No significant valvular dysfunction. There is a small pericardial effusion present. There is no echocardiographic evidence of tamponade. Left Ventricular Wall Motion: Rest Echo Findings The apex, apical inferior, mid inferior, basal inferior, apical anterior, mid anterior, basal anterior, apical septal, mid inferior septal, basal inferior septal, apical lateral, mid anterior lateral, basal anterior lateral, mid anterior septal, basal anterior septal and basal inferior lateral mcgee were hypokinetic. The mid inferior lateral wall was not visualized. Findings: Study Quality * Technically challenging due to body habitus. ECG Findings * Normal sinus rhythm with ectopy. Left Ventricle * Mildly dilated left ventricle. * Indeterminate diastolic function. * LVEF 45%. Right Ventricle * Normal right ventricular structure and function. Left Atrium * Moderate-severely dilated left atrium. Right Atrium * Normal right atrial size. Aortic Valve * No aortic regurgitation. * Aortic valve not well visualized. * No aortic stenosis. Mitral Valve * No mitral regurgitation. * Normal mitral valve structure. * No mitral stenosis. Tricuspid Valve * Tricuspid valve not well visualized. * Trace tricuspid regurgitation. Pulmonic Valve * Pulmonic valve is not well visualized. * No pulmonic stenosis. * No pulmonic regurgitation. Pulmonary Artery * Pulmonary artery not well visualized. Aorta * Normally sized aortic root. Pericardium * There is a small pericardial effusion present. * There is no echocardiographic evidence of tamponade. Interatrial Septum * No evidence of PFO by color Doppler. IVC * The IVC is not well evaluated. Consult Discharge Plan - Plan Referrals: [facility] [Primary Care Provider] -
[2017-09-22] MEDS: Sodium Chloride 5% OPTH 3.5 GM TUBE BOTH EYES SCH (20:02)
[2017-09-22] MEDS ORDERED: Furosemide 40 MG/4 ML VIAL IVP SCH (21:00)
[2017-09-23 07:05] LABS: Basophils % 0.5 %; Eosinophils # 0.1 K/mcL (0.0-0.6); Eosinophils % 1.2 %; Hematocrit 44.6 % (37.5-50.1); Hemoglobin 14.1 g/dL (12.9-16.9); Immature Granulocytes % 1.3 % (0-4); Lymphocytes # 2.9 K/mcL (0.6-4.6); Lymphocytes % 33.6 %; Mean Corpuscular HGB Conc 31.6 g/dL (31.6-35.5); Mean Corpuscular Hemoglobin 28.3 pg (28.0-33.3); Mean Corpuscular Volume 89.6 fL (83.0-100.0); Mean Platelet Volume 10.3 fL (9.4-12.4); Monocytes # 0.6 K/mcL (0.0-1.3); Monocytes % 7.3 %; Neutrophils # 4.8 K/mcL (1.6-8.9); Platelet Count 182 K/mcL (140-400); Red Blood Count 4.98 M/mcL (4.19-5.50); Red Cell Distribution Width 17.9 % (11.5-14.5); Segmented Neutrophils % 56.1 %
[2017-09-23 07:23] LABS: Calcium 8.6 mg/dL (8.6-10.3); Magnesium 1.5 mg/dL (1.6-2.6); Potassium 3.8 mEq/L (3.5-5.1)
[2017-09-23] MEDS: Lisinopril 20 MG TABLET PO SCH (07:54)
[2017-09-23] MEDS: Aspirin Enteric Coated 81 MG Tablet PO SCH (07:54)
[2017-09-23] MEDS: Finasteride 5 MG TABLET PO SCH (07:54)
[2017-09-23] MEDS: Furosemide 40 MG/4 ML VIAL IVP SCH ×2 (07:55→17:21)
[2017-09-23] MEDS: ENTOCORT 3 MG PO SCH (07:56)
[2017-09-23] MEDS: Magnesium Oxide 400 MG TABLET PO SCH (10:03)
--- NOTE | 2017-09-23 11:28 | Cardiology Progress Note ---
Date of Encounter: 09/23/17 Time of Encounter: 10:30 Assessment and Plan (1) CHF (congestive heart failure) Current Visit: Yes Status: Acute Per cardiology: -Significant leg edema noted, reports chronic. -TTE with LVEF 45%, global hypokinesis, mildly dilated LV, indeterminate diastolic function, normal RV structure and function, no significant valvular dysufnction, small pericardial effusion. -TTE 04/2017 [facility] with "normal LV systolic function." -On lasix 40mg IV BID. -On beta piedad and mikaela inhibitor. -Remains volume overloaded on exam. -Strict i/os, daily, weights fluid restritcion. -Agree with IV diuresis. -Per discussion with , with still significant volume overload and HTN , would favor conservative treatment at this time. Possible ischemic evaluation in outpatient setting. Discussed and reviewed with pateint and who are agreeable. Qualifiers: Heart failure type: systolic Heart failure chronicity: acute Qualified Code(s): I50.21 - Acute systolic (congestive) heart failure (2) Elevated troponin Current Visit: Yes Status: Acute Per cardiology: -Troponins 0.06 x3 in the setting of suspect CHF, HTN. -Denies chest pain. -ECG with SR, LBBB. Previous ECG reviewed with incomplete LBBB. -TTE with LVEF 45%, global hypokinesis. -On asa, beta piedad. -Do not suspect NSTEMI, suspect demand ischemia related to above. (3) HTN (hypertension) Current Visit: Yes Status: Chronic Per cardiology: -Known HTN. -BP currenlty 180-190s systolic. -On cardizem 420mg daily and lisinopril 40mg daily in outpateint setting -Cardizem stopped. On beta piedad. -PRN hydralazine. -BP remains elevated, will increase beta piedad today. -Will continue to monitor, will uptitrate BB as tolerated. Qualifiers: Hypertension type: essential hypertension Qualified Code(s): I10 - Essential (primary) hypertension Discussion w patient/family: The assessment and plan as outlined above was discussed with the patient and family who expressed understanding and agreement. All questions were answered. Thank you for involving us in the care of your patient. Please call with any questions. Discussed and reviewed with Subjective Principal diagnosis: CHF Interval history: Patient reports he feels that edema is improved. Denies shortness of breath, denies chest pain. Patient denies dizziness, lightheadedness. Objective Vital Signs, Last 4 Hours BP 09/23/17 09:44 149/75 09/23/17 09:03 183/102 09/23/17 09:02 183/102 09/23/17 08:54 172/100 Vital Signs Temperature 98.3 F 09/23/17 07:00 Pulse Rate 87 09/23/17 07:00 Respiratory Rate 16 09/23/17 07:00 Blood Pressure 149/75 09/23/17 09:44 O2 Sat by Pulse Oximetry 94 09/23/17 07:00 Oxygen Delivery Oxygen Delivery Room Air General: Conversant, No Apparent Distress HEENT: Atraumatic, Normocephaly, Mucus Membranes Moist Neck: No JVD, Normal carotid pulses Cardiac: Reg Rate and Rhythm, Normal S1 and S2, No Murmur Lungs: Normal Breath Sounds, No Wheeze, Rales, Rhonchi Neuro: Alert and responsive, No focal deficits noted Abdomen: Soft, Non-Tender Skin: No rashes noted on visualized skin Musculoskeletal: No Chest Wall Tenderness Extremities: No Clubbing, No Cyanosis, Normal Pulses, Other (2+ bilateral lower extremity pitting edema noted. ) Results 09/23/17 06:34 09/23/17 06:34 Lab Results Active Medications Aspirin (Aspirin Ec) 81 mg PO DAILY [facility] Stop: 03/23/18 09:01 Last Admin: 09/23/17 07:54 Dose: 81 mg Carvedilol (Coreg) 12.5 mg PO BIDWM [facility] PRN Reason: Protocol Stop: 03/25/18 17:01 Ferrous Sulfate (Ferrous Sulfate) 325 mg PO DAILY@0800 [facility] Stop: 03/24/18 08:01 Last Admin: 09/23/17 07:54 Dose: 325 mg Finasteride (Proscar) 5 mg PO DAILY [facility] PRN Reason: Protocol Stop: 03/23/18 09:01 Last Admin: 09/23/17 07:54 Dose: 5 mg Furosemide (Lasix) 40 mg IVP BIDDIURETIC [facility]DR[facility] Stop: 03/24/18 08:16 Last Admin: 09/23/17 07:55 Dose: 40 mg Hydralazine HCl (Hydralazine) 10 mg IVP Q6HR PRN PRN Reason: Hypertension Stop: 03/23/18 10:28 Last Admin: 09/23/17 09:08 Dose: 10 mg Hydrophilic Ointment (Aquaphor) 1 appl TP BID [facility] Stop: 03/23/18 09:01 Last Admin: 09/23/17 07:56 Dose: Not Given Lisinopril (Zestril) 40 mg PO DAILY [facility] PRN Reason: Protocol Stop: 03/23/18 09:01 Last Admin: 09/23/17 07:54 Dose: 40 mg Magnesium Oxide (Mag-Ox) 400 mg PO DAILY [facility] PRN Reason: Protocol Stop: 03/25/18 09:31 Last Admin: 09/23/17 10:03 Dose: 400 mg Naloxone HCl (Narcan) 0.4 mg IVP Q2MIN PRN PRN Reason: SEE COMMENTS Stop: 03/22/18 16:36 Pharmacy Profile Note (Patient Taking Own Medication) 1 each PO DAILY [facility] Stop: 03/23/18 09:01 Last Admin: 09/23/17 07:56 Dose: Not Given Potassium Chloride (Potassium Chloride) 40 meq PO BID [facility] Stop: 03/24/18 09:01 Last Admin: 09/23/17 07:54 Dose: 40 meq Sodium Chloride (Becca-128) 1 appl BOTH EYES HS [facility]DRA Stop: 03/23/18 21:01 Last Admin: 09/22/17 20:02 Dose: 1 appl Tamsulosin HCl (Flomax) 0.4 mg PO HS [facility]DRA PRN Reason: Protocol Stop: 03/23/18 21:01 Last Admin: 09/22/17 20:01 Dose: 0.4 mg Laboratory Tests 09/22/17 09/23/17 09/23/17 03:48 06:34 06:34 Hgb 14.1 Potassium 3.8 Creatinine 1.73 H 1.67 H Magnesium 1.5 L - Imaging and Cardiology Chest Xray: report reviewed Echo: report reviewed - EKG Interpretation EKG results cardiology: other (Telemetry reviewed with average HR previous 12 hours noted to be 85, SR. PVCs, PACs, short runs of a.tach noted.) Consult Discharge Plan - Plan [facility]errals: [facility] [Primary Care Provider] -
--- NOTE | 2017-09-23 16:05 | Internal Med Progress Note ---
Date of Encounter: 09/23/17 Time of Encounter: 16:02 - Assessment and plan (1) HTN (hypertension) Current Visit: Yes Status: Chronic Assessment and plan: Patient was on Cardizem 420mg every a.m. and 120mg at night. Also lisinopril 40 mg daily Cardiology consulted Stopped Cardizem and started beta piedad which was up titrated twice Continue to monitor blood pressure closely. Hypertensive again today Qualifiers: Hypertension type: essential hypertension Qualified Code(s): I10 - Essential (primary) hypertension (2) Bilateral lower extremity edema Current Visit: Yes Status: Acute Assessment and plan: Acute on chronic CHF, now with anasarca. No acute respiratory distress. BNP 473. Echocardiogram report reviewed with LVEF 45%. Global appearing mild reduction in LV systolic function. Mildly dilated left ventricle. Indeterminate diastolic function. Normal right ventricular structure and function. No significant valvular dysfunction. There is a small pericardial effusion present. There is no echocardiographic evidence of tamponade. Lasix 40 mg IV twice a day, strict I&O's and daily weights Cardiology following and recommend ischemic evaluation once volume status improved and blood pressure better controlled. This will now be scheduled as an outpatient. Reduction in LVEF has been noted. They obtained records from the [place]. Legs elevated when out of bed, edema is slowly improving (3) Elevated troponin Current Visit: Yes Status: Acute Assessment and plan: Cardiology following. Troponin 0.063 in the setting of CHF and hypertension with no chest pain. EKG sinus rhythm and left bundle branch block, previous EKG reviewed with incomplete left bundle branch block. Echocardiogram reviewed Continue aspirin Cardiology does not suspect a NSTEMI but demand ischemia related to above problems. Continue beta pidead as ordered Cardiology plans ischemic workup when volume status and blood pressure improved , likely as an outpatient (4) DVT prophylaxis Current Visit: Yes Status: Acute Assessment and plan: Heparin 5000 unit subcutaneous every 8 hours. No SCDs with swelling (5) CHF (congestive heart failure) Current Visit: Yes Status: Acute Assessment and plan: Cardiology following and plans ischemic workup as outpatient BNP 473 Chest x-ray with no acute abnormalities, echocardiogram reviewed. Continue Lasix 40 mg IV twice a day Daily weights I's and O's Appreciate cardiology input Qualifiers: Heart failure type: systolic Heart failure chronicity: acute Qualified Code(s): I50.21 - Acute systolic (congestive) heart failure (6) Hypokalemia Current Visit: Yes Status: Acute Assessment and plan: replace and monitor daily - Time Spent With Patient Total time spent is greater than 50% in coordination of care (as documented) at patient's floor/unit and/or counseling patient: - Subjective Interval history: Patient l up in the room with at the bedside. He states he is feeling better and his edema is slowly improving. He will likely be here another day or so. Cardiology plans for outpatient ischemic evaluation when his edema and breathing is better. - Constitutional Vitals: Temp Pulse Resp BP Pulse Ox 98.4 F 93 16 140/75 93 09/23/17 15:20 09/23/17 15:20 09/23/17 15:20 09/23/17 15:20 09/23/17 15:20 General appearance: Present: cooperative, A&O X 3, pleasant, answers questions appropriately - Head Head exam: Present: atraumatic, normocephalic - Eye Eye exam: Present: PERRL, conjuntiva pink, sclera anicteric Pupils: Present: PERRL - Neck Neck exam general surgery: Present: supple, trachea midline. Absent: lymphadenopathy - Respiratory Respiratory exam: Present: decreased breath sounds, prolonged expiratory phase. Absent: accessory muscle use, rales, rhonchi, wheezes - Cardiovascular Cardiovascular exam: Present: RRR, +S1, +S2. Absent: diastolic murmur, gallop, rubs, systolic murmur - GI/Abdominal GI/Abdominal exam: Present: normal bowel sounds, soft, no peritoneal signs. Absent: distended, tenderness Additional comments: Abdomen protuberant and full - Extremities Exam Extremities exam: Present: pedal edema, warm, radial pulses palpable and symmetrical. Absent: calf tenderness, cyanotic - Neurological Exam Neurological exam: Present: CN II-XII intact, oriented X3, no focal deficits. Absent: pronater drift, facial droop, speech deficit - Skin Skin exam: Present: dry, normal color, warm Internal Medicine: Result - Labs CBC & Chem 7: 09/23/17 06:34 09/23/17 06:34 Labs: Short CBC 09/23/17 Range/Units 06:34 WBC 8.6 (4.3-11.1) K/mcL Hgb 14.1 (12.9-16.9) g/dL Hct 44.6 (37.5-50.1) % Plt Count 182 (140-400) K/mcL Neutrophils # 4.8 (1.6-8.9) K/mcL BMP 09/23/17 06:34 Sodium 145 Potassium 3.8 Chloride 108 H Carbon Dioxide 29 BUN 29 H Creatinine 1.67 H Glucose 102 Calcium 8.6 Consult Discharge Plan - Plan [facility]errals: [facility] [Primary Care Provider] -
[2017-09-23] MEDS: Sodium Chloride 5% OPTH 3.5 GM TUBE BOTH EYES SCH (20:26)
[2017-09-24] MEDS: Furosemide 40 MG/4 ML VIAL IVP SCH (08:04)
[2017-09-24] MEDS: Finasteride 5 MG TABLET PO SCH (08:05)
[2017-09-24] MEDS: Lisinopril 20 MG TABLET PO SCH (08:05)
[2017-09-24] MEDS: Aspirin Enteric Coated 81 MG Tablet PO SCH (08:05)
[2017-09-24] MEDS: Magnesium Oxide 400 MG TABLET PO SCH (08:05)
[2017-09-24] MEDS: ENTOCORT 3 MG PO SCH (08:06)
--- NOTE | 2017-09-24 11:21 | Cardiology Progress Note ---
Date of Encounter: 09/24/17 Time of Encounter: 11:00 Assessment and Plan (1) CHF (congestive heart failure) Current Visit: Yes Status: Acute Per cardiology: -Acute on chronic systolic and diastolic CHF. -TTE 09/22/2007- LVEF 45%, no valvular issues. Small pericardial effusion. -BNP 400s. -Chest x-ray with no acute abnormalities. -Significant leg edema noted on admission and now improved with IV diuresis. Reported chronic BLE edema. states it is back to baseline. -Recommend converting to oral lasix. Start lasix 20 mg BID. -Continue carvedilol and lisinopril. -close out-pt f/u will be coordinated by [facility] in 2 weeks. -CHF education reviewed. Low sodium diet and daily weights. Qualifiers: Heart failure type: systolic Heart failure chronicity: acute Qualified Code(s): I50.21 - Acute systolic (congestive) heart failure (2) HTN (hypertension) Current Visit: Yes Status: Chronic Per cardiology: -Known HTN. -BP improved some. b/p 179/96 during my exam. 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 Increase to 25 mg BID. Low sodium diet stress. If b/p improves ok to d/c from cardiology standpoint. Qualifiers: Hypertension type: essential hypertension Qualified Code(s): I10 - Essential (primary) hypertension (3) Elevated troponin Current Visit: Yes Status: Acute Per cardiology: -Troponins 0.06 x3 in the setting of suspect CHF, HTN. -Denies chest pain. -ECG with SR, LBBB. Previous ECG reviewed with incomplete LBBB. -TTE with LVEF 45%, global hypokinesis. -On asa, beta piedad. -Do not suspect NSTEMI, suspect demand ischemia related to above. Discussion w patient/family: The assessment and plan as outlined above was discussed with the patient and/or family members who expressed understanding and agreement. All questions were answered. Thank you for involving us in the care of your patient. Please call with any questions. Subjective Principal diagnosis: CHF Interval history: Reports he feels back to baseline. Denies SOB. BLE edema improved. Objective Vital Signs, Last 4 Hours Temp Pulse Resp BP Pulse Ox 09/24/17 09:23 164/83 09/24/17 07:58 98.8 F 82 14 186/103 93 General: Conversant, No Apparent Distress HEENT: Atraumatic, Normocephaly, Mucus Membranes Moist Neck: No JVD, Normal carotid pulses Cardiac: Reg Rate and Rhythm, Normal S1 and S2, No Murmur Lungs: Normal Breath Sounds, No Wheeze, Rales, Rhonchi Neuro: Alert and responsive, No focal deficits noted Abdomen: Soft, Non-Tender Skin: No rashes noted on visualized skin Musculoskeletal: No Chest Wall Tenderness Extremities: No Clubbing, No Cyanosis, Normal Pulses, Other (1+ pitting BLE edema) Results 09/23/17 06:34 09/23/17 06:34 - Imaging and Cardiology Echo: report reviewed - EKG Interpretation EKG results cardiology: personally reviewed Consult Discharge Plan - Plan [facility]errals: [facility] [Primary Care Provider] -
--- NOTE | 2017-09-24 12:43 | Discharge Summary ---
- NOTES TO OUTPATIENT PROVIDER Notes to Outpatient Provider: Patient should follow-up with cardiology in 2 weeks and will be contacted. He should follow-up with his primary care physician within the week. Ischemic evaluation as an outpatient per cardiology discussion. Cardizem was changed to Coreg 25 mg twice a day. Date of Encounter: 09/24/17 Time of Encounter: 12:41 - Discharge Diagnosis (1) HTN (hypertension) Priority: Primary Status: Acute Qualifiers: Hypertension type: essential hypertension Qualified Code(s): I10 - Essential (primary) hypertension (2) Bilateral lower extremity edema Priority: Primary Status: Acute (3) Elevated troponin Priority: Primary Status: Acute (4) CHF (congestive heart failure) Priority: Primary Status: Acute Qualifiers: Heart failure type: combined systolic and diastolic Heart failure chronicity: acute on chronic Qualified Code(s): I50.43 - Acute on chronic combined systolic (congestive) and diastolic (congestive) heart failure (5) Hypokalemia Priority: Primary Status: Acute Hospital course: Mr. Robertson is a 86 year old male with a history of hypertension who follows at the [facility] in [place]. He was sent to the emergency room for evaluation of progressively worsening lower extremity swelling that was rapidly increasing as well as an elevated troponin. He also had an elevation in his BNP and creatinine level. Cardiology was consult dated and adjusted his medications. Blood pressure control was a problem over the last several days and has finally been controlled with increasing doses of Coreg. His Cardizem was discontinued several days ago. He is to follow-up with the career representative in 2 weeks in the office for evaluation and possible ischemic workup as an outpatient. His CHF symptoms have improved although he does still have some lower extremity edema. He will be sent home on a low sodium diet, daily weights with some CHF education. He also have home health. He denies any chest pain, shortness of breath, fever, chills or other complaints today. He will be switched to by mouth Lasix and given oral potassium. He has no questions regarding his discharge instructions. Discharge discussed with: patient, family, nurse, [employer] identity management consultant - Time Spent with Patient Total time spent providing and/or coordinating discharge services: Less than 30 minutes - Discharge Medications Prescriptions: Carvedilol [Coreg] 25 mg PO BIDWM 30 Days #60 tablet Furosemide [Lasix] 20 mg PO BIDDIURETIC 30 Days #60 tablet Lisinopril [Zestril] 40 mg PO DAILY 30 Days #30 tablet Magnesium Oxide [Mag-Ox] 400 mg PO DAILY 30 Days #30 tablet Potassium Chloride 20 meq PO DAILY 30 Days #30 tab.er.prt Home Medications: Finasteride [Proscar] 5 mg PO DAILY 06/28/17 [History] Hydrophilic Ointment [Aquabase] 1 appl TP BID 06/28/17 [History] Sodium Chloride 5% OPTH Oint [Becca-128] 1 appl BOTH EYES HS 06/28/17 [History] Tamsulosin [Flomax] 0.4 mg PO DAILY 06/28/17 [History] Vit C/E/Zn/Coppr/Lutein/Zeaxan [Preservision Areds 2 Softgel] 1 cap PO BID 06/28 [History] Aspirin [Lo-Dose Aspirin EC] 81 mg PO DAILY 09/20/17 [History] Budesonide [Entocort EC] 9 mg PO DAILY 09/20/17 [History] Lactobacillus Acidophilus [Acidophilus] 1 cap PO DAILY 09/20/17 [History] Carvedilol [Coreg] 25 mg PO BIDWM 30 Days #60 tablet 09/24/17 [Rx] Ferrous Sulfate 325 mg PO DAILY@0800 tablet 09/24/17 [Rx] Furosemide [Lasix] 20 mg PO BIDDIURETIC 30 Days #60 tablet 09/24/17 [Rx] Lisinopril [Zestril] 40 mg PO DAILY 30 Days #30 tablet 09/24/17 [Rx] Magnesium Oxide [Mag-Ox] 400 mg PO DAILY 30 Days #30 tablet 09/24/17 [Rx] Potassium Chloride 20 meq PO DAILY 30 Days #30 tab.er.prt 09/24/17 [Rx] Allergies/Adverse Reactions: 3 Allergy/AdvReac Type Severity Reaction Status Date / Time No Known Allergies Allergy Verified 06/28/17 09:47 Date of admission: 09/20/17 15:08 Primary care physician: PCP [facility] Consults: 09/20/17 16:41 Consult to Cardiology [CONS] Routine Comment: Consulting Provider: Cardiology [facility] Reason for Consult: New left bundle branch block, raised troponin, new onset CHF Call Completed: No Discharging clinician: Tabby S Troy Anticipated date of discharge: 09/24/17 - Constitutional Vitals: Temp Pulse Resp BP Pulse Ox 99.2 F 77 14 168/95 96 09/24/17 11:41 09/24/17 11:41 09/24/17 11:41 09/24/17 11:41 09/24/17 11:41 General appearance: Present: cooperative, A&O X 3, pleasant, answers questions appropriately - Head Head exam: Present: atraumatic, normocephalic - Eye Eye exam: Present: PERRL, conjuntiva pink, sclera anicteric Pupils: Present: PERRL - Neck Neck exam general surgery: Present: supple, trachea midline. Absent: lymphadenopathy - Respiratory Respiratory exam: Present: decreased breath sounds, CTAB. Absent: accessory muscle use, chest wall tenderness, rales, rhonchi, wheezes - Cardiovascular Cardiovascular exam: Present: RRR, +S1, +S2. Absent: diastolic murmur, gallop, rubs, systolic murmur - GI/Abdominal GI/Abdominal exam: Present: normal bowel sounds, soft, no peritoneal signs. Absent: distended, tenderness Additional comments: obese and full - Extremities Exam Extremities exam: Present: pedal edema (still with lower extremity edema but much improved), warm, radial pulses palpable and symmetrical. Absent: calf tenderness, cyanotic - Neurological Exam Neurological exam: Present: alert, CN II-XII intact, oriented X3, no focal deficits. Absent: pronater drift, facial droop, speech deficit - Skin Skin exam: Present: dry, normal color, warm - Patient Status Disposition: Home Health Service Condition: Good Functional capacity at discharge: independent ambulation Overall status at discharge: patient is progressing back to baseline - Discharge Instructions Follow Up With: [facility] [place] [Provider Group] [facility] [Primary Care Provider] - - Diet and Activity Activity: increase activity as tolerated
[2017-09-24 12:55] VITALS: BP 157/84
--- NOTE | 2017-09-24 13:02 | Physician Discharge Referral ---
Home Health/Hosp Referral Info Attending Provider: zeny rodríguez - Diagnosis (1) HTN (hypertension) Priority: Primary Status: Acute (2) Bilateral lower extremity edema Priority: Primary Status: Acute (3) Elevated troponin Priority: Primary Status: Acute (4) CHF (congestive heart failure) Priority: Primary Status: Acute (5) Hypokalemia Priority: Primary Status: Acute - Respiratory Orders None Smoking Cessation: Smoking cessation has been advised. For more information, call the [place] Tobacco Quit Line at 6-488-CXMM-NOW. - Diet/Nutrition Diet/Nutrition Orders: No Added Salt (LEANN), Cardiac - Activity Activity Orders: Ambulate - Services Needed Following services are medically necessary services: Nursing, Home Health Aide, Physical Therapy, Occupational Therapy Home Care Orders: Patient needs CHF teaching with daily weights low-sodium diet and intake /output - Transfer Medications Prescriptions: Carvedilol [Coreg] 25 mg PO BIDWM 30 Days #60 tablet Furosemide [Lasix] 20 mg PO BIDDIURETIC 30 Days #60 tablet Lisinopril [Zestril] 40 mg PO DAILY 30 Days #30 tablet Magnesium Oxide [Mag-Ox] 400 mg PO DAILY 30 Days #30 tablet Potassium Chloride 20 meq PO DAILY 30 Days #30 tab.er.prt Home Medications: Finasteride [Proscar] 5 mg PO DAILY 06/28/17 [History] Hydrophilic Ointment [Aquabase] 1 appl TP BID 06/28/17 [History] Sodium Chloride 5% OPTH Oint [Becca-128] 1 appl BOTH EYES HS 06/28/17 [History] Tamsulosin [Flomax] 0.4 mg PO DAILY 06/28/17 [History] Vit C/E/Zn/Coppr/Lutein/Zeaxan [Preservision Areds 2 Softgel] 1 cap PO BID 06/28 [History] Aspirin [Lo-Dose Aspirin EC] 81 mg PO DAILY 09/20/17 [History] Budesonide [Entocort EC] 9 mg PO DAILY 09/20/17 [History] Lactobacillus Acidophilus [Acidophilus] 1 cap PO DAILY 09/20/17 [History] Carvedilol [Coreg] 25 mg PO BIDWM 30 Days #60 tablet 09/24/17 [Rx] Ferrous Sulfate 325 mg PO DAILY@0800 tablet 09/24/17 [Rx] Furosemide [Lasix] 20 mg PO BIDDIURETIC 30 Days #60 tablet 09/24/17 [Rx] Lisinopril [Zestril] 40 mg PO DAILY 30 Days #30 tablet 09/24/17 [Rx] Magnesium Oxide [Mag-Ox] 400 mg PO DAILY 30 Days #30 tablet 09/24/17 [Rx] Potassium Chloride 20 meq PO DAILY 30 Days #30 tab.er.prt 09/24/17 [Rx] Allergies/Adverse Reactions: 3 Allergy/AdvReac Type Severity Reaction Status Date / Time No Known Allergies Allergy Verified 06/28/17 09:47 Certification: Further, I certify that my clinical findings support that this patient is homebound (i.e. absences from home require considerable and taxing effort and are for medical reasons or m[employer]on[employer] services or infrequently or short duration when for other reasons) because: Homebound Reason: Absences from home are contraindicated except to recieve medical care, Leaving home requires considerable and taxing effort due to condition, Severity of cardiac or pulmonary status limits activity tolerance Attestation: My signature below is to certify that this patient is under my care and that I, or nurse practitioner, or a physician's service assistant working with me, has a face-to -face encounter with this patient.
[2017-09-24] MEDS ORDERED: Furosemide 20 MG TABLET PO SCH (17:00)
== END 2017-09-24 14:30 | disposition home health service (06) | DRG 292 ==
LOC: EMEROO 13:16 → 3BNU 15:08
PROVIDERS: ADMIT Family Medicine; ATTEND Registered Nurse

== ENCOUNTER 2019-09-21 20:39 | Inpatient (IN) ==
[2019-09-21] MEDS ORDERED: Naloxone 0.4 MG/ML INJ IVP PRN (23:21)
[2019-09-22 00:12] LABS: INR 1.2; Prothrombin Time 13.7 Seconds (9.4-12.1)
[2019-09-22 00:12] LABS: VBG HCO3 25 mEq/L (21-27); VBG PCO2 53 mmHg (41-51); VBG PH 7.29 pH Units (7.32-7.42); VBG PO2 115 mmHg (25-50)
[2019-09-22 00:16] LABS: Basophils % 0.3 %; Eosinophils # 0.2 K/mcL (0.0-0.6); Eosinophils % 3.3 %; Hematocrit 34.8 % (37.5-50.1); Hemoglobin 10.9 g/dL (12.9-16.9); Immature Granulocytes % 2.6 % (0-4); Lymphocytes # 1.2 K/mcL (0.6-4.6); Lymphocytes % 15.8 %; Mean Corpuscular HGB Conc 31.3 g/dL (31.6-35.5); Mean Corpuscular Hemoglobin 30.5 pg (28.0-33.3); Mean Corpuscular Volume 97.5 fL (83.0-100.0); Mean Platelet Volume 10.1 fL (9.4-12.4); Monocytes # 0.5 K/mcL (0.0-1.3); Monocytes % 6.2 %; Neutrophils # 5.2 K/mcL (1.6-8.9); Platelet Count 157 K/mcL (140-400); Red Blood Count 3.57 M/mcL (4.19-5.50); Red Cell Distribution Width 15.6 % (11.5-14.5); Segmented Neutrophils % 71.8 %; White Blood Count 7.3 K/mcL (4.3-11.1)
[2019-09-22 00:27] LABS: Magnesium 2.4 mg/dL (1.6-2.6); Phosphorous 4.6 mg/dL (2.7-4.5)
[2019-09-22 00:29] LABS: Albumin 3.1 g/dL (3.5-5.7); Albumin/Globulin Ratio 0.8 (1.1-2.2); Bilirubin,Total 0.4 mg/dL (0.3-1.0); Calcium 9.4 mg/dL (8.6-10.3); Globulin 3.7 g/dL (2.4-3.5); Potassium 4.2 mEq/L (3.5-5.1); Total Protein 6.8 g/dL (6.4-8.9)
[2019-09-22 00:30] LABS: Troponin I 0.03 ng/mL (< 0.04)
[2019-09-22] MEDS ORDERED: cefTRIAXone 1,000 MG in 0.9 % Sodium Chloride Mini Bag 100 ML IVPB ONE (01:25)
[2019-09-22] MEDS ORDERED: Morphine Sulfate 2 MG/ML SYRINGE IVP ONE (01:25)
[2019-09-22] MEDS ORDERED: Naloxone 0.4 MG/ML INJ IVP PRN (01:29)
[2019-09-22] MEDS ORDERED: Albuterol 2.5 MG/3 ML NEBULIZER IH PRN (01:29)
[2019-09-22] MEDS ORDERED: Melatonin 3 MG TABLET PO PRN (01:31)
[2019-09-22] MEDS: Ipratropium/Albuterol Neb 3 ML IH SCH ×5 (03:23→22:30)
[2019-09-22] MEDS ORDERED: MethylPREDNISolone 40 MG/ML VIAL IVP ONE (04:45)
[2019-09-22] MEDS: Furosemide 40 MG/4 ML VIAL IVP SCH ×2 (05:14→20:03)
[2019-09-22 06:32] LABS: Basophils % 0.5 %; Eosinophils # 0.3 K/mcL (0.0-0.6); Hematocrit 34.2 % (37.5-50.1); Hemoglobin 10.5 g/dL (12.9-16.9); Lymphocytes # 1.3 K/mcL (0.6-4.6); Lymphocytes % 17.7 %; Mean Corpuscular HGB Conc 30.7 g/dL (31.6-35.5); Mean Corpuscular Hemoglobin 30.3 pg (28.0-33.3); Mean Corpuscular Volume 98.6 fL (83.0-100.0); Mean Platelet Volume 10.2 fL (9.4-12.4); Monocytes # 0.5 K/mcL (0.0-1.3); Monocytes % 7.1 %; Neutrophils # 5.1 K/mcL (1.6-8.9); Platelet Count 154 K/mcL (140-400); Red Blood Count 3.47 M/mcL (4.19-5.50); Red Cell Distribution Width 15.4 % (11.5-14.5); Segmented Neutrophils % 68.7 %; White Blood Count 7.5 K/mcL (4.3-11.1)
[2019-09-22 06:55] LABS: Calcium 9.3 mg/dL (8.6-10.3); Potassium 4.1 mEq/L (3.5-5.1)
[2019-09-22 07:00] LABS: Troponin I 0.04 ng/mL (< 0.04)
[2019-09-22] MEDS: Aspirin Enteric Coated 81 MG Tablet PO SCH (08:13)
[2019-09-22 09:56] LABS: Bilirubin,Urine Negative (Negative); Blood,Urine Trace (Negative); Clarity,Urine Clear (Clear); Color,Urine Yellow (Yellow); Glucose,Urine (UA) Normal (Normal); Ketones,Urine Negative (Negative); Leukocyte Esterase,Urine Small (Negative); Nitrite,Urine Negative (Negative); Protein,Urine 30 mg/dL (Neg-Trace); Specific Gravity,Urine 1.012 (1.010-1.025); Urobilinogen,Urine Normal (Normal)
[2019-09-22 09:59] LABS: Bacteria,Urine None Seen per hpf (None-Few); Hyaline Casts,Urine None Seen per lpf (None-Few); Squamous Epithelial Cell,Urine Few per lpf (None-Few)
[2019-09-22] MEDS: carvediloL 6.25 MG TABLET PO SCH (15:04)
[2019-09-22] MEDS: *HR* Heparin 5,000 UNIT/ML VIAL SQ SCH (17:02)
[2019-09-22] MEDS: Doxycycline 100 MG CAPSULE PO SCH (20:03)
[2019-09-23] MEDS: Ipratropium/Albuterol Neb 3 ML IH SCH ×4 (04:15→21:50)
[2019-09-23] MEDS: *HR* Heparin 5,000 UNIT/ML VIAL SQ SCH ×2 (06:23→16:46)
[2019-09-23 07:36] LABS: Hematocrit 34.7 % (37.5-50.1); Hemoglobin 10.6 g/dL (12.9-16.9); Mean Corpuscular HGB Conc 30.5 g/dL (31.6-35.5); Mean Corpuscular Hemoglobin 29.8 pg (28.0-33.3); Mean Corpuscular Volume 97.5 fL (83.0-100.0); Mean Platelet Volume 10.8 fL (9.4-12.4); Platelet Count 167 K/mcL (140-400); Red Blood Count 3.56 M/mcL (4.19-5.50); Red Cell Distribution Width 15.3 % (11.5-14.5); White Blood Count 6.4 K/mcL (4.3-11.1)
[2019-09-23 07:52] LABS: Calcium 9.5 mg/dL (8.6-10.3); Potassium 4.2 mEq/L (3.5-5.1)
[2019-09-23] MEDS: Piperacillin/Tazobactam 3.375 GM in 0.9 % Sodium Chloride Mini Bag 100 ML IVPB SCH ×2 (09:11→16:46)
[2019-09-23] MEDS: carvediloL 6.25 MG TABLET PO SCH ×2 (09:12→16:46)
[2019-09-23] MEDS: Furosemide 40 MG/4 ML VIAL IVP SCH ×2 (09:12→21:04)
[2019-09-23] MEDS: predniSONE 20 MG TABLET PO SCH (09:12)
[2019-09-23] MEDS: Aspirin Enteric Coated 81 MG Tablet PO SCH (09:12)
[2019-09-23] MEDS: Doxycycline 100 MG CAPSULE PO SCH ×2 (09:12→21:04)
[2019-09-24 02:43] LABS: Calcium 9.2 mg/dL (8.6-10.3); Potassium 3.9 mEq/L (3.5-5.1)
[2019-09-24 02:44] LABS: Hematocrit 30.6 % (37.5-50.1); Hemoglobin 9.5 g/dL (12.9-16.9); Mean Corpuscular Hemoglobin 29.9 pg (28.0-33.3); Mean Corpuscular Volume 96.2 fL (83.0-100.0); Mean Platelet Volume 10.4 fL (9.4-12.4); Platelet Count 153 K/mcL (140-400); Red Blood Count 3.18 M/mcL (4.19-5.50); White Blood Count 4.9 K/mcL (4.3-11.1)
[2019-09-24] MEDS: Ipratropium/Albuterol Neb 3 ML IH SCH ×3 (04:06→16:09)
[2019-09-24] MEDS: Piperacillin/Tazobactam 3.375 GM in 0.9 % Sodium Chloride Mini Bag 100 ML IVPB SCH (05:59)
[2019-09-24] MEDS: *HR* Heparin 5,000 UNIT/ML VIAL SQ SCH (05:59)
[2019-09-24] MEDS: Aspirin Enteric Coated 81 MG Tablet PO SCH (09:39)
[2019-09-24] MEDS: Furosemide 40 MG/4 ML VIAL IVP SCH (09:40)
[2019-09-24] MEDS: predniSONE 20 MG TABLET PO SCH (09:40)
[2019-09-24] MEDS: carvediloL 6.25 MG TABLET PO SCH (09:40)
[2019-09-24] MEDS: Doxycycline 100 MG CAPSULE PO SCH (09:40)
[2019-09-24 16:18] VITALS: BP 153/82
== END 2019-09-24 16:49 | disposition home health service (06) | DRG 280 ==
LOC: 2ANU → SUATTDRO 22:40
PROVIDERS: ADMIT Internal Medicine; ATTEND Internal Medicine

== ENCOUNTER 2019-12-05 18:02 | Inpatient (IN) ==
[2019-12-05 21:34] LABS: Hematocrit 37.5 % (37.5-50.1); Hemoglobin 11.6 g/dL (12.9-16.9); Mean Corpuscular HGB Conc 30.9 g/dL (31.6-35.5); Mean Corpuscular Hemoglobin 29.7 pg (28.0-33.3); Mean Corpuscular Volume 96.2 fL (83.0-100.0); Mean Platelet Volume 9.7 fL (9.4-12.4); Platelet Count 172 K/mcL (140-400); Red Cell Distribution Width 14.6 % (11.5-14.5)
[2019-12-05 21:54] LABS: Albumin/Globulin Ratio 0.8 (1.1-2.2); Bilirubin,Total 0.6 mg/dL (0.3-1.0); Calcium 9.3 mg/dL (8.6-10.3); Globulin 3.6 g/dL (2.4-3.5); Potassium 3.5 mEq/L (3.5-5.1); Total Protein 6.6 g/dL (6.4-8.9)
[2019-12-05] MEDS ORDERED: Isovue-370 500 ML BOTTLE IVP ONE (22:06)
[2019-12-05] MEDS ORDERED: Naloxone 0.4 MG/ML INJ IVP PRN (23:05)
[2019-12-05] MEDS ORDERED: Levalbuterol Neb 1.25 MG/3 ML IH PRN (23:24)
[2019-12-06] MEDS: amLODIPine 5 MG TABLET PO SCH ×2 (00:07→09:49)
[2019-12-06 00:20] LABS: Bilirubin,Urine Negative (Negative); Blood,Urine Moderate (Negative); Clarity,Urine Clear (Clear); Color,Urine Light-Yellow (Yellow); Glucose,Urine (UA) Normal (Normal); Hyaline Casts,Urine Few per lpf (None Seen); Ketones,Urine Negative (Negative); Leukocyte Esterase,Urine Small (Negative); Mucus,Urine Few per lpf (None-Few); Nitrite,Urine Negative (Negative); Protein,Urine 100 mg/dL (Neg-Trace); RBC,Urine 0-3 per hpf (0-3); Specific Gravity,Urine 1.016 (1.010-1.025); Squamous Epithelial Cell,Urine Few per hpf (None-Few); Urobilinogen,Urine Normal (Normal)
[2019-12-06 03:54] LABS: Hematocrit 35.9 % (37.5-50.1); Hemoglobin 11.1 g/dL (12.9-16.9); Mean Corpuscular HGB Conc 30.9 g/dL (31.6-35.5); Mean Corpuscular Hemoglobin 29.7 pg (28.0-33.3); Mean Platelet Volume 9.8 fL (9.4-12.4); Platelet Count 192 K/mcL (140-400); Red Blood Count 3.74 M/mcL (4.19-5.50); Red Cell Distribution Width 14.6 % (11.5-14.5); White Blood Count 12.3 K/mcL (4.3-11.1)
[2019-12-06 04:17] LABS: Calcium 9.5 mg/dL (8.6-10.3); Chol/HDL Ratio 4.3 (0-4.9); Magnesium 2.1 mg/dL (1.6-2.6); Potassium 3.3 mEq/L (3.5-5.1)
[2019-12-06] MEDS: Acetaminophen 325 MG TABLET PO PRN (05:05)
[2019-12-06] MEDS ORDERED: valACYclovir 500 MG TABLET PO SCH (09:00)
[2019-12-06] MEDS: Aspirin Enteric Coated 81 MG Tablet PO SCH (09:48)
[2019-12-06] MEDS: Finasteride 5 MG TABLET PO SCH (09:48)
[2019-12-06] MEDS: Lactobacillus 1 EACH CAP.SPRINK PO SCH ×3 (09:48→16:33)
[2019-12-06] MEDS: carvediloL 25 MG TABLET PO SCH ×2 (09:48→16:33)
[2019-12-06] MEDS: hydrALAZINE 10 MG TABLET PO SCH ×3 (09:48→20:01)
[2019-12-06] MEDS ORDERED: Piperacillin/Tazobactam 3.375 GM in 0.9 % Sodium Chloride Mini Bag 100 ML IVPB SCH (10:01)
[2019-12-06] MEDS ORDERED: Acyclovir 500 MG in D5% in Water 100 ML IVPB SCH (10:06)
[2019-12-06] MEDS ORDERED: Vancomycin 1,250 MG/262.5 ML IV.SOLN IVPB ONE (10:16)
[2019-12-06] MEDS ORDERED: Vancomycin 1 EACH in 0.9 % Sodium Chloride 250 ML IVPB PRN (10:30)
[2019-12-06 11:12] LABS: Hematocrit 35.3 % (37.5-50.1); Hemoglobin 11.2 g/dL (12.9-16.9)
[2019-12-06 12:22] LABS: C.difficile Toxin A/B Gene PCR Not detected (Not detect); Campylobacter by PCR Not detected (Not detect); E. coli O157 by PCR Not detected (Not detect); Enteroaggregative E.coli(EAEC) Not detected (Not detect); Enteropathogenic E.coli(EPEC) Not detected (Not detect); Enterotoxigenic E.coli (ETEC) Not detected (Not detect); Plesiomonas shigelloides PCR Not detected (Not detect); Salmonella PCR Not detected (Not detect); Shig/EnteroinvasiveE coli EIEC Not detected (Not detect); Shigalike tox-prod E coli STEC Not detected (Not detect); Vibrio PCR Not detected (Not detect); Vibrio cholerae PCR Not detected (Not detect); Yersinia enterocolitica PCR Not detected (Not detect)
[2019-12-06 12:23] LABS: Adenovirus F 40/41 PCR Not detected (Not detect); Astrovirus PCR Not detected (Not detect); Cryptosporidium by PCR Not detected (Not detect); Cyclospora cayetanensis PCR Not detected (Not detect); Entamoeba histolytica PCR Not detected (Not detect); Giardia lamblia PCR Not detected (Not detect); Norovirus GI/GII PCR Not detected (Not detect); Rotavirus A PCR Not detected (Not detect); Sapovirus PCR Not detected (Not detect)
[2019-12-06 13:19] LABS: Hepatitis B Surface Antigen Nonreactive (Nonreactive)
[2019-12-06 13:47] LABS: Hepatitis C Virus Antibody Nonreactive (Nonreactive)
[2019-12-06 13:48] LABS: HIV-1&2 Antibody & p24 Ag Nonreactive (Nonreactive)
[2019-12-06 15:22] LABS: Hematocrit 33.4 % (37.5-50.1); Hemoglobin 10.7 g/dL (12.9-16.9)
[2019-12-06] MEDS: Acyclovir 500 MG in D5% in Water 100 ML IVPB SCH (20:02)
[2019-12-06] MEDS: Sodium Chloride 5% OPTH 3.5 GM TUBE BOTH EYES SCH (21:00)
[2019-12-06] MEDS: Piperacillin/Tazobactam 3.375 GM in 0.9 % Sodium Chloride Mini Bag 100 ML IVPB SCH (21:13)
[2019-12-06 22:03] LABS: Hematocrit 37.4 % (37.5-50.1); Hemoglobin 11.3 g/dL (12.9-16.9)
[2019-12-07 04:46] LABS: Hemoglobin 10.4 g/dL (12.9-16.9)
[2019-12-07 04:47] LABS: Hematocrit 33.9 % (37.5-50.1); Hemoglobin 10.2 g/dL (12.9-16.9); Mean Corpuscular HGB Conc 30.1 g/dL (31.6-35.5); Mean Corpuscular Hemoglobin 29.6 pg (28.0-33.3); Mean Corpuscular Volume 98.3 fL (83.0-100.0); Mean Platelet Volume 10.1 fL (9.4-12.4); Platelet Count 183 K/mcL (140-400); Red Blood Count 3.45 M/mcL (4.19-5.50); Red Cell Distribution Width 14.8 % (11.5-14.5); White Blood Count 12.4 K/mcL (4.3-11.1)
[2019-12-07 05:03] LABS: Calcium 9.5 mg/dL (8.6-10.3); Magnesium 2.2 mg/dL (1.6-2.6); Potassium 4.7 mEq/L (3.5-5.1)
[2019-12-07] MEDS: Acyclovir 500 MG in D5% in Water 100 ML IVPB SCH (05:34)
[2019-12-07] MEDS: Lactobacillus 1 EACH CAP.SPRINK PO SCH ×3 (08:56→16:18)
[2019-12-07] MEDS: Aspirin Enteric Coated 81 MG Tablet PO SCH (08:56)
[2019-12-07] MEDS: amLODIPine 5 MG TABLET PO SCH (08:56)
[2019-12-07] MEDS: carvediloL 25 MG TABLET PO SCH ×2 (08:56→16:18)
[2019-12-07] MEDS: hydrALAZINE 10 MG TABLET PO SCH ×3 (08:57→21:53)
[2019-12-07] MEDS: Finasteride 5 MG TABLET PO SCH (08:57)
[2019-12-07] MEDS: Piperacillin/Tazobactam 3.375 GM in 0.9 % Sodium Chloride Mini Bag 100 ML IVPB SCH ×2 (09:10→21:54)
[2019-12-07] MEDS ORDERED: Acetaminophen IV 1,000 MG/100 ML BAG IVPB ONE (16:23)
[2019-12-07] MEDS: Sodium Chloride 5% OPTH 3.5 GM TUBE BOTH EYES SCH (23:06)
[2019-12-08 02:42] LABS: Hematocrit 31.5 % (37.5-50.1); Hemoglobin 9.7 g/dL (12.9-16.9); Mean Corpuscular HGB Conc 30.8 g/dL (31.6-35.5); Mean Corpuscular Hemoglobin 30.5 pg (28.0-33.3); Mean Corpuscular Volume 99.1 fL (83.0-100.0); Mean Platelet Volume 10.3 fL (9.4-12.4); Platelet Count 182 K/mcL (140-400); Red Blood Count 3.18 M/mcL (4.19-5.50); White Blood Count 10.6 K/mcL (4.3-11.1)
[2019-12-08 02:54] LABS: Calcium 9.3 mg/dL (8.6-10.3); Magnesium 2.2 mg/dL (1.6-2.6); Potassium 4.4 mEq/L (3.5-5.1)
[2019-12-08] MEDS: Acyclovir 700 MG in D5% in Water 250 ML IVPB SCH (05:19)
[2019-12-08] MEDS: Finasteride 5 MG TABLET PO SCH ×2 (08:41→14:06)
[2019-12-08] MEDS: Cholecalciferol (D-3) 1,000 UNIT (25MCG) TABLET PO SCH ×2 (08:42→14:07)
[2019-12-08] MEDS: carvediloL 25 MG TABLET PO SCH ×4 (08:42→17:58)
[2019-12-08] MEDS: Lactobacillus 1 EACH CAP.SPRINK PO SCH ×4 (08:42→17:59)
[2019-12-08] MEDS: Acetaminophen 325 MG TABLET PO PRN (08:42)
[2019-12-08] MEDS: Aspirin Enteric Coated 81 MG Tablet PO SCH ×2 (08:42→14:06)
[2019-12-08] MEDS: amLODIPine 5 MG TABLET PO SCH ×2 (08:43→14:06)
[2019-12-08] MEDS: hydrALAZINE 10 MG TABLET PO SCH ×4 (08:51→21:33)
[2019-12-08] MEDS: Piperacillin/Tazobactam 3.375 GM in 0.9 % Sodium Chloride Mini Bag 100 ML IVPB SCH ×2 (09:00→21:33)
[2019-12-08 14:12] LABS: Basophils % 0.3 %; Eosinophils # 0.3 K/mcL (0.0-0.6); Eosinophils % 2.4 %; Hematocrit 31.6 % (37.5-50.1); Lymphocytes # 1.4 K/mcL (0.6-4.6); Lymphocytes % 11.3 %; Mean Corpuscular HGB Conc 31.6 g/dL (31.6-35.5); Mean Corpuscular Hemoglobin 30.9 pg (28.0-33.3); Mean Corpuscular Volume 97.5 fL (83.0-100.0); Monocytes # 0.9 K/mcL (0.0-1.3); Monocytes % 7.7 %; Neutrophils # 9.2 K/mcL (1.6-8.9); Platelet Count 203 K/mcL (140-400); Red Blood Count 3.24 M/mcL (4.19-5.50); Red Cell Distribution Width 15.2 % (11.5-14.5); Segmented Neutrophils % 76.3 %
[2019-12-08 14:31] LABS: Calcium 9.5 mg/dL (8.6-10.3); Potassium 4.2 mEq/L (3.5-5.1)
[2019-12-08] MEDS ORDERED: *HR* HYDROmorphone 2 MG/ML SYRINGE IVP ONE (15:40)
[2019-12-08] MEDS ORDERED: *HR* LORazepam 2 MG/ML VIAL IVP ONE (15:41)
[2019-12-08] MEDS: Sodium Chloride 5% OPTH 3.5 GM TUBE BOTH EYES SCH (21:32)
[2019-12-09 05:12] LABS: Basophils # 0.1 K/mcL (0.0-0.2); Basophils % 0.7 %; Eosinophils # 0.3 K/mcL (0.0-0.6); Hematocrit 33.9 % (37.5-50.1); Hemoglobin 10.3 g/dL (12.9-16.9); Immature Granulocytes % 2.4 % (0-4); Lymphocytes # 1.5 K/mcL (0.6-4.6); Lymphocytes % 14.1 %; Mean Corpuscular HGB Conc 30.4 g/dL (31.6-35.5); Mean Corpuscular Hemoglobin 29.9 pg (28.0-33.3); Mean Corpuscular Volume 98.3 fL (83.0-100.0); Mean Platelet Volume 10.2 fL (9.4-12.4); Monocytes # 0.9 K/mcL (0.0-1.3); Monocytes % 8.2 %; Neutrophils # 7.7 K/mcL (1.6-8.9); Platelet Count 210 K/mcL (140-400); Red Blood Count 3.45 M/mcL (4.19-5.50); Red Cell Distribution Width 15.3 % (11.5-14.5); Segmented Neutrophils % 71.6 %; White Blood Count 10.7 K/mcL (4.3-11.1)
[2019-12-09 05:32] LABS: Calcium 9.5 mg/dL (8.6-10.3); Magnesium 2.3 mg/dL (1.6-2.6); Potassium 4.2 mEq/L (3.5-5.1)
[2019-12-09] MEDS: Acyclovir 700 MG in D5% in Water 250 ML IVPB SCH (06:16)
[2019-12-09] MEDS ORDERED: *HR* HYDROmorphone (PF) 1 MG/ML SYRINGE IVP ONE (06:25)
[2019-12-09] MEDS ORDERED: Vancomycin 500 MG in 0.9 % Sodium Chloride Mini Bag 100 ML IVPB ONE (07:00)
[2019-12-09] MEDS: Piperacillin/Tazobactam 3.375 GM in 0.9 % Sodium Chloride Mini Bag 100 ML IVPB SCH ×2 (09:17→21:22)
[2019-12-09] MEDS: Lactobacillus 1 EACH CAP.SPRINK PO SCH ×3 (09:25→17:22)
[2019-12-09] MEDS: carvediloL 25 MG TABLET PO SCH ×2 (09:25→17:22)
[2019-12-09] MEDS: Cholecalciferol (D-3) 1,000 UNIT (25MCG) TABLET PO SCH (09:25)
[2019-12-09] MEDS: hydrALAZINE 10 MG TABLET PO SCH ×3 (09:25→21:03)
[2019-12-09] MEDS: amLODIPine 5 MG TABLET PO SCH (09:25)
[2019-12-09] MEDS: Aspirin Enteric Coated 81 MG Tablet PO SCH (09:25)
[2019-12-09] MEDS: Finasteride 5 MG TABLET PO SCH (09:25)
[2019-12-09] MEDS ORDERED: Aminoglycoside Consult 1 EACH MC ONE (10:21)
[2019-12-09 11:07] LABS: HSV 1 Glycoprotein G IgG >62.20 IV (<=0.89); HSV 2 Glycoprotein G IgG 0.16 IV (<=0.89)
[2019-12-09] MEDS ORDERED: *HR* HYDROmorphone (PF) 1 MG/ML SYRINGE IVP PRN (11:12)
[2019-12-09] MEDS: D5% in 0.45% NACL w KCl 10 MEQ/1,000 ML MLS IVC SCH (12:58)
[2019-12-09 19:49] LABS: Hematocrit 32.5 % (37.5-50.1); Hemoglobin 9.9 g/dL (12.9-16.9)
[2019-12-09] MEDS: Sodium Chloride 5% OPTH 3.5 GM TUBE BOTH EYES SCH (21:32)
[2019-12-10] MEDS: D5% in 0.45% NACL w KCl 10 MEQ/1,000 ML MLS IVC SCH (02:52)
[2019-12-10 05:42] LABS: Basophils # 0.1 K/mcL (0.0-0.2); Basophils % 0.5 %; Eosinophils # 0.4 K/mcL (0.0-0.6); Hemoglobin 9.9 g/dL (12.9-16.9); Immature Granulocytes % 2.9 % (0-4); Lymphocytes # 1.4 K/mcL (0.6-4.6); Lymphocytes % 14.9 %; Mean Corpuscular HGB Conc 30.9 g/dL (31.6-35.5); Mean Corpuscular Hemoglobin 30.6 pg (28.0-33.3); Mean Corpuscular Volume 98.8 fL (83.0-100.0); Mean Platelet Volume 9.9 fL (9.4-12.4); Monocytes # 0.8 K/mcL (0.0-1.3); Monocytes % 7.9 %; Neutrophils # 6.7 K/mcL (1.6-8.9); Platelet Count 220 K/mcL (140-400); Red Blood Count 3.24 M/mcL (4.19-5.50); Segmented Neutrophils % 69.8 %; White Blood Count 9.6 K/mcL (4.3-11.1)
[2019-12-10 05:58] LABS: Calcium 9.5 mg/dL (8.6-10.3); Magnesium 2.3 mg/dL (1.6-2.6); Potassium 3.9 mEq/L (3.5-5.1)
[2019-12-10] MEDS: Acyclovir 700 MG in D5% in Water 250 ML IVPB SCH (06:17)
[2019-12-10] MEDS ORDERED: D5% in Water 1,000 ML IVC SCH (07:45)
[2019-12-10] MEDS: hydrALAZINE 10 MG TABLET PO SCH (09:10)
[2019-12-10] MEDS: Finasteride 5 MG TABLET PO SCH (09:10)
[2019-12-10] MEDS: amLODIPine 5 MG TABLET PO SCH (09:10)
[2019-12-10] MEDS: carvediloL 25 MG TABLET PO SCH ×2 (09:10→16:08)
[2019-12-10] MEDS: Cholecalciferol (D-3) 1,000 UNIT (25MCG) TABLET PO SCH (09:10)
[2019-12-10] MEDS: Lactobacillus 1 EACH CAP.SPRINK PO SCH ×3 (09:10→16:08)
[2019-12-10] MEDS: Piperacillin/Tazobactam 3.375 GM in 0.9 % Sodium Chloride Mini Bag 100 ML IVPB SCH ×2 (09:11→21:45)
[2019-12-10] MEDS: Aspirin Enteric Coated 81 MG Tablet PO SCH (09:11)
[2019-12-10 16:11] LABS: Potassium 4.7 mEq/L (3.5-5.1)
[2019-12-10] MEDS: Sodium Chloride 5% OPTH 3.5 GM TUBE BOTH EYES SCH (21:45)
[2019-12-11] MEDS: Acyclovir 700 MG in D5% in Water 250 ML IVPB SCH (04:56)
[2019-12-11 06:54] LABS: Basophils # 0.1 K/mcL (0.0-0.2); Hematocrit 33.3 % (37.5-50.1); Hemoglobin 10.3 g/dL (12.9-16.9); Mean Corpuscular HGB Conc 30.9 g/dL (31.6-35.5); Mean Corpuscular Hemoglobin 30.2 pg (28.0-33.3); Mean Corpuscular Volume 97.7 fL (83.0-100.0); Mean Platelet Volume 9.7 fL (9.4-12.4); Platelet Count 203 K/mcL (140-400); Red Blood Count 3.41 M/mcL (4.19-5.50); Red Cell Distribution Width 14.8 % (11.5-14.5); White Blood Count 8.6 K/mcL (4.3-11.1)
[2019-12-11 07:00] LABS: Calcium 9.6 mg/dL (8.6-10.3); Magnesium 2.1 mg/dL (1.6-2.6); Potassium 3.6 mEq/L (3.5-5.1)
[2019-12-11 08:26] LABS: Eosinophils # 0.2 K/mcL (0.0-0.6); Lymphocytes # 2.1 K/mcL (0.6-4.6); Monocytes # 0.5 K/mcL (0.0-1.3); Neutrophils # 5.6 K/mcL (1.6-8.9)
[2019-12-11 08:27] LABS: Platelet Estimate Normal (Normal); Reactive Lymphocytes Present (Not Present)
[2019-12-11] MEDS: Lactobacillus 1 EACH CAP.SPRINK PO SCH ×3 (09:50→17:05)
[2019-12-11] MEDS: Aspirin Enteric Coated 81 MG Tablet PO SCH (09:50)
[2019-12-11] MEDS: amLODIPine 5 MG TABLET PO SCH (09:50)
[2019-12-11] MEDS: Finasteride 5 MG TABLET PO SCH (09:51)
[2019-12-11] MEDS: Cholecalciferol (D-3) 1,000 UNIT (25MCG) TABLET PO SCH (09:51)
[2019-12-11] MEDS: Piperacillin/Tazobactam 3.375 GM in 0.9 % Sodium Chloride Mini Bag 100 ML IVPB SCH ×2 (09:51→21:40)
[2019-12-11] MEDS: carvediloL 25 MG TABLET PO SCH ×2 (09:51→17:05)
[2019-12-11] MEDS: D5% in Water 1,000 ML IVC SCH (17:30)
[2019-12-11] MEDS: Sodium Chloride 5% OPTH 3.5 GM TUBE BOTH EYES SCH (21:00)
[2019-12-12] MEDS: Acyclovir 700 MG in D5% in Water 250 ML IVPB SCH (06:00)
[2019-12-12] MEDS: VISINE TEARS DROPS 15 ML BOTH EYES PRN (06:03)
[2019-12-12 07:03] LABS: Basophils % 0.5 %; Eosinophils # 0.3 K/mcL (0.0-0.6); Eosinophils % 3.7 %; Hematocrit 32.2 % (37.5-50.1); Hemoglobin 9.9 g/dL (12.9-16.9); Immature Granulocytes % 5.9 % (0-4); Lymphocytes # 1.7 K/mcL (0.6-4.6); Lymphocytes % 19.9 %; Mean Corpuscular HGB Conc 30.7 g/dL (31.6-35.5); Mean Corpuscular Hemoglobin 30.4 pg (28.0-33.3); Mean Corpuscular Volume 98.8 fL (83.0-100.0); Mean Platelet Volume 10.1 fL (9.4-12.4); Monocytes # 0.6 K/mcL (0.0-1.3); Neutrophils # 5.5 K/mcL (1.6-8.9); Platelet Count 185 K/mcL (140-400); Red Blood Count 3.26 M/mcL (4.19-5.50); Red Cell Distribution Width 14.8 % (11.5-14.5); White Blood Count 8.8 K/mcL (4.3-11.1)
[2019-12-12 07:23] LABS: Platelet Estimate Normal (Normal); Reactive Lymphocytes Present (Not Present)
[2019-12-12 07:26] LABS: Calcium 9.4 mg/dL (8.6-10.3); Magnesium 2.2 mg/dL (1.6-2.6); Potassium 3.5 mEq/L (3.5-5.1)
[2019-12-12] MEDS: Cholecalciferol (D-3) 1,000 UNIT (25MCG) TABLET PO SCH (09:52)
[2019-12-12] MEDS: Aspirin Enteric Coated 81 MG Tablet PO SCH (09:53)
[2019-12-12] MEDS: Piperacillin/Tazobactam 3.375 GM in 0.9 % Sodium Chloride Mini Bag 100 ML IVPB SCH (09:53)
[2019-12-12] MEDS: Lactobacillus 1 EACH CAP.SPRINK PO SCH ×3 (09:53→17:23)
[2019-12-12] MEDS: amLODIPine 5 MG TABLET PO SCH (09:53)
[2019-12-12] MEDS: Finasteride 5 MG TABLET PO SCH (09:53)
[2019-12-12] MEDS: carvediloL 25 MG TABLET PO SCH ×2 (09:53→17:23)
[2019-12-12] MEDS: Acyclovir 200 MG CAPSULE PO SCH ×2 (17:23→23:40)
[2019-12-12 21:05] LABS: Hematocrit 30.3 % (37.5-50.1)
[2019-12-12 21:08] LABS: Hemoglobin 9.3 g/dL (12.9-16.9)
[2019-12-12 21:24] LABS: Potassium 3.6 mEq/L (3.5-5.1)
[2019-12-12] MEDS: Lacri-Lube 3.5 GM TUBE BOTH EYES SCH (23:40)
[2019-12-13 02:13] LABS: Calcium 8.9 mg/dL (8.6-10.3); Potassium 3.6 mEq/L (3.5-5.1)
[2019-12-13] MEDS: carvediloL 25 MG TABLET PO SCH ×2 (08:04→16:49)
[2019-12-13] MEDS: Acyclovir 200 MG CAPSULE PO SCH (08:04)
[2019-12-13] MEDS: amLODIPine 5 MG TABLET PO SCH (08:05)
[2019-12-13] MEDS: Lactobacillus 1 EACH CAP.SPRINK PO SCH ×3 (08:09→16:49)
[2019-12-13] MEDS: Cholecalciferol (D-3) 1,000 UNIT (25MCG) TABLET PO SCH (08:27)
[2019-12-13] MEDS: Finasteride 5 MG TABLET PO SCH (08:27)
[2019-12-13] MEDS ORDERED: EPHEDrine 50 MG/ML VIAL ONE (11:23)
[2019-12-13] MEDS ORDERED: Lidocaine -MPF 2% 2 ML VIAL ONE (11:28)
[2019-12-13] MEDS ORDERED: *HR* PHENYLEPHRINE 1,000 MCG/10 ML SYRINGE IVP ONE (11:47)
[2019-12-13 12:20] LABS: Estimated Average Glucose 117 mg/dl; Hemoglobin A1C 5.7 %
[2019-12-13 15:33] LABS: Hemoglobin 9.3 g/dL (12.9-16.9)
[2019-12-13] MEDS: D5% in Water 1,000 ML IVC SCH (19:12)
[2019-12-13] MEDS: Lacri-Lube 3.5 GM TUBE BOTH EYES SCH (20:00)
[2019-12-14] MEDS ORDERED: *HR* FentaNYL (PF) 100 MCG/2 ML VIAL IVP ONE (07:38)
[2019-12-14] MEDS ORDERED: *HR* Midazolam HCl 5 MG/5 ML VIAL IVP ONE ×2 (07:38→08:23)
[2019-12-14] MEDS ORDERED: *HR* FentaNYL (PF) 100 MCG/2 ML VIAL ONE (08:23)
[2019-12-14] MEDS: carvediloL 25 MG TABLET PO SCH ×2 (10:07→17:45)
[2019-12-14] MEDS: amLODIPine 5 MG TABLET PO SCH (10:07)
[2019-12-14] MEDS: Lactobacillus 1 EACH CAP.SPRINK PO SCH ×3 (10:22→17:45)
[2019-12-14] MEDS: Finasteride 5 MG TABLET PO SCH (10:23)
[2019-12-14] MEDS: Cholecalciferol (D-3) 1,000 UNIT (25MCG) TABLET PO SCH (10:23)
[2019-12-14] MEDS ORDERED: Lidocaine -MPF 2% 2 ML VIAL ONE (10:59)
[2019-12-14] MEDS: methylPREDNISolone 125 MG/2 ML VIAL IVP SCH (10:59)
[2019-12-14 11:55] LABS: Calcium 8.7 mg/dL (8.6-10.3); Potassium 3.7 mEq/L (3.5-5.1)
[2019-12-14 11:59] LABS: Basophils % 0.3 %; Eosinophils # 0.3 K/mcL (0.0-0.6); Eosinophils % 3.2 %; Hematocrit 27.7 % (37.5-50.1); Hemoglobin 8.6 g/dL (12.9-16.9); Immature Granulocytes % 2.1 % (0-4); Lymphocytes % 19.7 %; Mean Corpuscular Hemoglobin 29.4 pg (28.0-33.3); Mean Corpuscular Volume 94.5 fL (83.0-100.0); Mean Platelet Volume 11.1 fL (9.4-12.4); Monocytes # 0.7 K/mcL (0.0-1.3); Monocytes % 6.5 %; Platelet Count 151 K/mcL (140-400); Red Blood Count 2.93 M/mcL (4.19-5.50); Red Cell Distribution Width 14.5 % (11.5-14.5); Segmented Neutrophils % 68.2 %; White Blood Count 10.3 K/mcL (4.3-11.1)
[2019-12-14] MEDS: Leptospermum Honey Paste 44 ML TUBE TP SCH (17:02)
[2019-12-14] MEDS: Lacri-Lube 3.5 GM TUBE BOTH EYES SCH (19:19)
[2019-12-15] MEDS: methylPREDNISolone 125 MG/2 ML VIAL IVP SCH (08:04)
[2019-12-15] MEDS: Lactobacillus 1 EACH CAP.SPRINK PO SCH ×3 (08:07→18:31)
[2019-12-15] MEDS: amLODIPine 5 MG TABLET PO SCH (08:07)
[2019-12-15] MEDS: Finasteride 5 MG TABLET PO SCH (08:08)
[2019-12-15] MEDS: Cholecalciferol (D-3) 1,000 UNIT (25MCG) TABLET PO SCH (08:15)
[2019-12-15] MEDS: carvediloL 25 MG TABLET PO SCH ×2 (08:20→18:37)
[2019-12-15] MEDS ORDERED: Tuberculin Skin Test (PPD) 5 UNIT/0.1 ML VIAL ID ONE (10:14)
[2019-12-15 11:01] LABS: Hematocrit 25.3 % (37.5-50.1); Hemoglobin 7.8 g/dL (12.9-16.9)
[2019-12-15 11:22] LABS: Potassium 4.2 mEq/L (3.5-5.1)
[2019-12-15 11:54] LABS: Hepatitis B Surface Antigen Nonreactive (Nonreactive)
[2019-12-15 12:23] LABS: Hepatitis C Virus Antibody Nonreactive (Nonreactive)
[2019-12-15 12:24] LABS: Hepatitis B Core IgM Nonreactive (Nonreactive)
[2019-12-15 12:25] LABS: Hepatitis A Antibody IgM Nonreactive (Nonreactive)
[2019-12-15] MEDS: Leptospermum Honey Paste 44 ML TUBE TP SCH (18:33)
[2019-12-15] MEDS: Lacri-Lube 3.5 GM TUBE BOTH EYES SCH (21:11)
[2019-12-16] MEDS: amLODIPine 5 MG TABLET PO SCH (07:36)
[2019-12-16] MEDS: Finasteride 5 MG TABLET PO SCH (07:37)
[2019-12-16] MEDS: Cholecalciferol (D-3) 1,000 UNIT (25MCG) TABLET PO SCH (07:37)
[2019-12-16] MEDS: Lactobacillus 1 EACH CAP.SPRINK PO SCH ×3 (07:39→19:57)
[2019-12-16] MEDS: methylPREDNISolone 125 MG/2 ML VIAL IVP SCH (07:40)
[2019-12-16] MEDS: carvediloL 25 MG TABLET PO SCH ×2 (07:53→19:58)
[2019-12-16 07:59] LABS: Hematocrit 26.2 % (37.5-50.1); Hemoglobin 8.2 g/dL (12.9-16.9)
[2019-12-16 08:14] LABS: Calcium 9.2 mg/dL (8.6-10.3)
[2019-12-16] MEDS: Leptospermum Honey Paste 44 ML TUBE TP SCH (10:55)
[2019-12-16] MEDS: Lacri-Lube 3.5 GM TUBE BOTH EYES SCH (21:21)
[2019-12-17 01:55] LABS: Hemoglobin 7.9 g/dL (12.9-16.9)
[2019-12-17 02:17] LABS: Calcium 8.5 mg/dL (8.6-10.3); Potassium 4.2 mEq/L (3.5-5.1)
[2019-12-17] MEDS: methylPREDNISolone 125 MG/2 ML VIAL IVP SCH (08:06)
[2019-12-17] MEDS: Finasteride 5 MG TABLET PO SCH (08:07)
[2019-12-17] MEDS: amLODIPine 5 MG TABLET PO SCH (08:07)
[2019-12-17] MEDS: Cholecalciferol (D-3) 1,000 UNIT (25MCG) TABLET PO SCH (08:07)
[2019-12-17] MEDS: carvediloL 25 MG TABLET PO SCH ×2 (08:07→16:13)
[2019-12-17] MEDS: Leptospermum Honey Paste 44 ML TUBE TP SCH (08:08)
[2019-12-17] MEDS: Lactobacillus 1 EACH CAP.SPRINK PO SCH ×3 (08:08→16:13)
[2019-12-17] MEDS: Furosemide 40 MG/4 ML VIAL IVP SCH (12:01)
[2019-12-17] MEDS: Lacri-Lube 3.5 GM TUBE BOTH EYES SCH (21:42)
[2019-12-17] MEDS: Acetaminophen 325 MG TABLET PO PRN (21:49)
[2019-12-17] MEDS: VISINE TEARS DROPS 15 ML BOTH EYES PRN (22:03)
[2019-12-18 02:05] LABS: Hematocrit 22.7 % (37.5-50.1); Hemoglobin 7.2 g/dL (12.9-16.9)
[2019-12-18] MEDS: Lactobacillus 1 EACH CAP.SPRINK PO SCH ×3 (10:49→16:41)
[2019-12-18] MEDS: Finasteride 5 MG TABLET PO SCH (10:49)
[2019-12-18] MEDS: methylPREDNISolone 125 MG/2 ML VIAL IVP SCH (10:50)
[2019-12-18] MEDS: carvediloL 25 MG TABLET PO SCH ×2 (10:50→16:41)
[2019-12-18] MEDS: Cholecalciferol (D-3) 1,000 UNIT (25MCG) TABLET PO SCH (10:50)
[2019-12-18] MEDS: amLODIPine 5 MG TABLET PO SCH (10:50)
[2019-12-18] MEDS: Leptospermum Honey Paste 44 ML TUBE TP SCH ×2 (10:51→18:03)
[2019-12-18] MEDS: Furosemide 40 MG/4 ML VIAL IVP SCH (10:51)
[2019-12-18] MEDS ORDERED: 0.9 % Sodium Chloride 250 ML ONE (14:06)
[2019-12-18 19:27] LABS: Hematocrit 30.5 % (37.5-50.1); Hemoglobin 9.7 g/dL (12.9-16.9)
[2019-12-18] MEDS: Lacri-Lube 3.5 GM TUBE BOTH EYES SCH (21:20)
[2019-12-19 06:37] LABS: Basophils % 0.1 %; Hematocrit 26.5 % (37.5-50.1); Hemoglobin 8.7 g/dL (12.9-16.9); Immature Granulocytes % 1.9 % (0-4); Lymphocytes # 0.6 K/mcL (0.6-4.6); Lymphocytes % 6.6 %; Mean Corpuscular HGB Conc 32.8 g/dL (31.6-35.5); Mean Corpuscular Hemoglobin 30.7 pg (28.0-33.3); Mean Corpuscular Volume 93.6 fL (83.0-100.0); Mean Platelet Volume 10.7 fL (9.4-12.4); Monocytes # 0.5 K/mcL (0.0-1.3); Monocytes % 5.4 %; Neutrophils # 7.7 K/mcL (1.6-8.9); Platelet Count 137 K/mcL (140-400); Red Blood Count 2.83 M/mcL (4.19-5.50); Red Cell Distribution Width 14.7 % (11.5-14.5); White Blood Count 8.9 K/mcL (4.3-11.1)
[2019-12-19 07:05] LABS: Calcium 8.5 mg/dL (8.6-10.3); Potassium 4.9 mEq/L (3.5-5.1)
[2019-12-19] MEDS: Finasteride 5 MG TABLET PO SCH (10:11)
[2019-12-19] MEDS: Lactobacillus 1 EACH CAP.SPRINK PO SCH ×3 (10:11→16:13)
[2019-12-19] MEDS: Cholecalciferol (D-3) 1,000 UNIT (25MCG) TABLET PO SCH (10:11)
[2019-12-19] MEDS: amLODIPine 5 MG TABLET PO SCH (10:12)
[2019-12-19] MEDS: Furosemide 40 MG/4 ML VIAL IVP SCH (10:12)
[2019-12-19] MEDS: methylPREDNISolone 125 MG/2 ML VIAL IVP SCH (10:12)
[2019-12-19] MEDS: carvediloL 25 MG TABLET PO SCH ×2 (10:12→16:13)
[2019-12-19] MEDS: Leptospermum Honey Paste 44 ML TUBE TP SCH (12:07)
[2019-12-19 15:46] VITALS: BP 148/84
[2019-12-24 15:30] LABS: Thiopurine Methy Genotyp NEG/NEG; Thiopurine Methyl Gen Specimen WHOLE BLOOD
== END 2019-12-19 17:22 | DRG 871 ==
LOC: 3NENU → SUATTDRO 19:51 → 2NNU 12-06 11:58 → SUATTDRO 12-06 14:21 → 3NENU 12-11 17:00
PROVIDERS: ADMIT Internal Medicine; ATTEND Family Medicine
PROC: ENDOCBX (2019-12-13 17:30)